=== PATIENT | male | born 1960 | race Caucasian/White ===

== ENCOUNTER 2020-05-06 10:39 | Outpatient (REF) | payer OTHER, SELFPAY ==
[2020-05-06 12:11] LABS: Anion Gap 10 (12-20); Blood Urea Nitrogen 16 mg/dL (9-16); Calcium 8.8 mg/dL (8.4-10.2); Carbon Dioxide 28 mmol/L (22-29); Chloride 103 mmol/L (96-108); Cholesterol 174 mg/dL; Estimated Glomerular Filt Rate > 60; Glucose Random 111 mg/dL (60-115); HDL Cholesterol 33 mg/dL; LDL Cholesterol Calculated 123 mg/dl; Potassium 4.3 mmol/l (3.3-5.1); Sodium 137 mmol/L (135-145); Triglycerides 91 mg/dL
[2020-05-06 12:26] LABS: Creatinine Urine 118.91 mg/dL; Microalbum/Creatinine Ratio Ur 17.6 ug/mg cr
[2020-05-06 13:36] LABS: Prostate Specific Antigen 2.58 ng/mL (<0.05-4.0)
== END 2020-05-06 10:40 | disposition home or self-care (01) ==
LOC: HO.LAB 10:39
PROVIDERS: PCP Family Medicine; Visit Provider Family Medicine
DX: Z12.5 Encounter for screening for malignant neoplasm of prostate (principal); Z12.11 Encounter for screening for malignant neoplasm of colon; Z12.12 Encounter for screening for malignant neoplasm of rectum; E78.00 Pure hypercholesterolemia, unspecified; I10 Essential (primary) hypertension
CPT/HCPCS: 80048; 80061; 82043; 84153

== ENCOUNTER 2020-05-29 16:35 | Outpatient (REF) | payer OTHER, SELFPAY | END 2020-05-29 16:36 | disposition home or self-care (01) | LOC: HO.LAB 16:35 | PROVIDERS: Visit Provider Internal Medicine | DX: Z20.828 Contact with and (suspected) exposure to other viral communicable diseases (principal) | CPT/HCPCS: C9803; U0003 ==

== ENCOUNTER 2021-03-06 13:10 | Outpatient (REF) | payer OTHER, SELFPAY | END 2021-03-06 13:11 | disposition home or self-care (01) | LOC: HO.HMGCLDS 13:10 | PROVIDERS: PCP Family Medicine; Visit Provider Internal Medicine | DX: Z20.822 Contact with and (suspected) exposure to COVID-19 (principal) | CPT/HCPCS: C9803; U0003; U0005 ==

== ENCOUNTER 2021-05-08 09:05 | Outpatient (REF) | payer OTHER, SELFPAY ==
--- NOTE | ~2021-05-08 | XR_ITS ---
EXAMINATION: XR CHEST CLINICAL INFORMATION: Nicotine dependence COMPARISON: Previous chest x-rays most recent July 2019 TECHNIQUE: 2 views of the chest were obtained. FINDINGS: The cardiac and mediastinal contours are stable. The lungs are well inflated. The lungs are clear. There is no pleural effusion or pneumothorax. There are degenerative changes of the spine. XR/XR chest 2V IMPRESSION: No evidence for acute disease in the chest.
[2021-05-08 10:49] LABS: Alanine Aminotransferase 14 U/L (0-40); Albumin Level 4.4 g/dL (3.5-5.0); Alkaline Phosphatase 69 U/L (39-117); Anion Gap 12 (12-20); Aspartate Amino Transferase 14 U/L (5-37); Bilirubin Total 0.4 mg/dL (0.0-1.0); Blood Urea Nitrogen 17 mg/dL (9-16); Calcium 9.6 mg/dL (8.4-10.2); Carbon Dioxide 30 mmol/L (22-29); Chloride 105 mmol/L (96-108); Cholesterol 196 mg/dL; Estimated Glomerular Filt Rate > 60; Glucose Fasting 104 mg/dL (60-99); HDL Cholesterol 34 mg/dL; LDL Cholesterol Calculated 138 mg/dl; Potassium 4.7 mmol/L (3.3-5.1); Sodium 142 mmol/L (135-145); Total Protein 7.1 g/dL (6.5-8.0); Triglycerides 120 mg/dL
== END 2021-05-08 09:06 | disposition home or self-care (01) ==
LOC: HO.LAB 09:05
PROVIDERS: PCP Family Medicine; Visit Provider Family Medicine
DX: Z00.00 Encounter for general adult medical examination without abnormal findings (principal); E78.6 Lipoprotein deficiency; F17.200 Nicotine dependence, unspecified, uncomplicated; I10 Essential (primary) hypertension; Z86.39 Personal history of other endocrine, nutritional and metabolic disease
CPT/HCPCS: 36415; 71046; 80053; 80061; 84443

== ENCOUNTER 2021-08-14 09:43 | Outpatient (REF) | payer OTHER, SELFPAY ==
[2021-08-14 10:52] LABS: Cholesterol 186 mg/dL; HDL Cholesterol 34 mg/dL; LDL Cholesterol Calculated 134 mg/dl; Triglycerides 92 mg/dL
== END 2021-08-14 09:44 | disposition home or self-care (01) ==
LOC: HO.LAB 09:43
PROVIDERS: PCP Family Medicine; Visit Provider Family Medicine
DX: E78.5 Hyperlipidemia, unspecified (principal)
CPT/HCPCS: 36415; 80061

== ENCOUNTER 2022-02-12 08:54 | Outpatient (REF) | payer OTHER, SELFPAY ==
[2022-02-12 09:58] LABS: Alanine Aminotransferase 9 U/L (0-40); Albumin Level 4.3 g/dL (3.5-5.0); Alkaline Phosphatase 87 U/L (39-117); Anion Gap 16 (12-20); Aspartate Amino Transferase 14 U/L (5-37); Bilirubin Total 0.7 mg/dL (0.0-1.0); Blood Urea Nitrogen 13 mg/dL (9-16); Calcium 9.4 mg/dL (8.4-10.2); Carbon Dioxide 26 mmol/L (22-29); Chloride 101 mmol/L (96-108); Cholesterol 173 mg/dL; Estimated Glomerular Filt Rate > 60; Glucose Fasting 95 mg/dL (60-99); HDL Cholesterol 33 mg/dL; LDL Cholesterol Calculated 118 mg/dl; Potassium 4.5 mmol/L (3.3-5.1); Sodium 138 mmol/L (135-145); Total Protein 7.2 g/dL (6.5-8.0); Triglycerides 110 mg/dL
== END 2022-02-12 08:55 | disposition home or self-care (01) ==
LOC: HO.LAB 08:54
PROVIDERS: PCP Family Medicine; Visit Provider Family Medicine
DX: Z00.00 Encounter for general adult medical examination without abnormal findings (principal)
CPT/HCPCS: 36415; 80053; 80061

== ENCOUNTER 2022-08-13 09:05 | Outpatient (REF) | payer OTHER, SELFPAY ==
[2022-08-13 09:13] LABS: MANUAL DIFF FLAG NO
[2022-08-13 09:24] LABS: Basophils Absolute Auto 0.1 X10*3/uL (0.0-0.2); Basophils Percent Auto 1.9 % (0-2); Eosinophils Absolute Auto 0.3 X10*3/uL (0.0-0.4); Eosinophils Percent Auto 3.9 % (0-4); Hematocrit 46.6 % (42.0-52.0); Hemoglobin 15.6 g/dl (14.0-18.0); Imm Gran Abs Auto 0.02 X10*3/uL (0.00-0.03); Imm Gran Pct Auto 0.3 % (0.0-0.4); Lymphocytes Absolute Auto 2.3 X10*3/uL (1.2-4.9); Mean Corpuscular HGB Conc 33.5 g/dl (31.0-36.0); Mean Corpuscular Hemoglobin 29.2 pg (27.0-33.0); Mean Corpuscular Volume 87.3 fL (80.0-98.0); Mean Platelet Volume 10.7 fL (9.4-12.4); Monocytes Absolute Auto 0.6 X10*3/uL (0.1-1.2); Neutrophils Absolute Auto 4.1 x10*3/uL (2.0-8.3); Neutrophils Percent Auto 54.9 % (45-73); Platelet Count 200 X10*3/uL (160-400); Red Blood Count 5.34 X10*6/uL (4.60-5.80); Red Cell Distribution Width 12.7 % (11.0-16.0); White Blood Count 7.5 X10*3/uL (4.8-10.8)
[2022-08-13 09:49] LABS: Appearance Urine Clear; Color Urine Yellow; Glucose Urine UA Negative (Negative); Leukocyte Esterase Urine Negative (Negative); Nitrite Urine Negative (Negative); Urine Blood Negative (Negative); Urine Ketones Negative (Negative); Urine Protein Negative (Neg-Trace)
[2022-08-13 09:56] LABS: Creatinine Urine 166.36 mg/dL; Microalbum/Creatinine Ratio Ur 16.8 ug/mg cr
[2022-08-13 10:00] LABS: Alanine Aminotransferase 12 U/L (0-40); Albumin Level 4.2 g/dL (3.5-5.0); Alkaline Phosphatase 69 U/L (39-117); Anion Gap 14 (12-20); Aspartate Amino Transferase 16 U/L (5-37); Bilirubin Total 0.5 mg/dL (0.0-1.0); Blood Urea Nitrogen 18 mg/dL (9-16); Calcium 9.2 mg/dL (8.4-10.2); Carbon Dioxide 29 mmol/L (22-29); Chloride 107 mmol/L (96-108); Cholesterol 182 mg/dL; Estimated Glomerular Filt Rate > 60; Glucose Fasting 105 mg/dL (60-99); HDL Cholesterol 36 mg/dL; LDL Cholesterol Calculated 132 mg/dl; Potassium 4.6 mmol/L (3.3-5.1); Sodium 145 mmol/L (135-145); Total Protein 6.5 g/dL (6.5-8.0); Triglycerides 73 mg/dL
[2022-08-13 10:16] LABS: Prostate Specific Antigen Scr 5.48 ng/mL (<0.05-4.0); TSH reflex Free T4 0.81 uIU/mL (0.32-4.0)
== END 2022-08-13 09:06 | disposition home or self-care (01) ==
LOC: HO.LAB 09:05
PROVIDERS: PCP Family Medicine; Visit Provider Family Medicine
DX: Z00.00 Encounter for general adult medical examination without abnormal findings (principal); Z12.5 Encounter for screening for malignant neoplasm of prostate; I10 Essential (primary) hypertension
CPT/HCPCS: 36415; 80053; 80061; 81003; 82043; 84153; 84443; 85025

== ENCOUNTER 2022-11-19 09:35 | Outpatient (REF) | payer OTHER, SELFPAY ==
[2022-11-19 10:31] LABS: Alanine Aminotransferase 15 U/L (0-40); Albumin Level 4.4 g/dL (3.5-5.0); Alkaline Phosphatase 73 U/L (39-117); Anion Gap 12 (12-20); Aspartate Amino Transferase 17 U/L (5-37); Bilirubin Total 0.9 mg/dL (0.0-1.0); Blood Urea Nitrogen 14 mg/dL (9-16); Calcium 9.6 mg/dL (8.4-10.2); Carbon Dioxide 30 mmol/L (22-29); Chloride 102 mmol/L (96-108); Cholesterol 181 mg/dL; Estimated Glomerular Filt Rate > 60; Glucose Fasting 97 mg/dL (60-99); HDL Cholesterol 36 mg/dL; LDL Cholesterol Calculated 129 mg/dl; Potassium 4.3 mmol/L (3.3-5.1); Sodium 140 mmol/L (135-145); Triglycerides 80 mg/dL
== END 2022-11-19 09:36 | disposition home or self-care (01) ==
LOC: HO.LAB 09:35
PROVIDERS: PCP Family Medicine; Visit Provider Family Medicine
DX: Z00.00 Encounter for general adult medical examination without abnormal findings (principal); R73.01 Impaired fasting glucose; E78.5 Hyperlipidemia, unspecified
CPT/HCPCS: 36415; 80053; 80061

== ENCOUNTER 2023-03-29 16:32 | Outpatient (AMB) | payer OTHER, SELFPAY ==
[2023-03-29 16:41] VITALS: BP 108/62; PULSE 60; O2SAT 98; BMI 23.3
--- NOTE | 2023-03-29 16:41 | A.OFFPC_ITS ---
Vital Signs 03/29/23 16:41 Height 5 ft 9 in Weight 158 lb 2 oz BMI 23.3 BP 108/62 Blood Pressure Location Lt brachial Position Sitting Pulse 60 Pulse Source Pulse Oximeter Pulse Oximetry (%) 98 Oxygen Delivery Method Room Air Intake Visit Reasons: f/u hypertension and chronic conditions Intake Note: Patient is here for follow up on hypertension and chronic. Allergies No Known Allergies [No Known Allergies*] Allergy (Verified 03/29/23 16:44) Tobacco use date assessed: 03/29/23 Fall risk assessment: No Falls in past year Last assessed Fall Risk: 03/29/23 Dental Screening Dental Screen Date: 03/29/23 Did you have a dental visit in the last 12 months?: No Did you have a dental problem in the last 6 months where you did not have access to dental care?: No Was dental information given to patient?: Patient has dentist HPI f/u hypertension and chronic conditions HPI Details 63 y/o male presents to f/u hypertension and chronic conditions. Blood pressure today 108/62. He is on lisinopril 10mg and metoprolol 100mg daily. A1c today 03/29/23 is 5.7%. [facility] Surgical History History of ear surgery History of surgery on lower extremity Social History Housing: Apartment Alcohol intake: never Patient Tobacco Use Status: Current everyday Tobacco user Tobacco use type: Cigarette Cigarette Packs Per Day: 0.5 Cigarettes Per Day: 10 e-Cigarette/Vaping Use: Never Used Second Hand Smoke Exposure: Yes service: No Current occupational status: employed Cognitive needs: No Hearing needs: No Vision needs: No Questionnaire Thrive Questionnaire Date Thrive assessed: 08/16/22 MAUREEN-7 AMB Questionnaire MAUREEN-7 Date MAUREEN - 7 assessed: 08/16/22 Source: Developed by Drs. Matti Richard, Clarita Somers, Mohsen Longoria and colleagues, with an educational juli from [employer]. Review of Systems Const Denies chills, Denies fatigue, Denies fever(s), Denies headache(s) and Denies weakness ENT Denies dizziness and Denies headache(s) Card Denies chest pain, Denies lightheadedness, Denies dyspnea and Denies other (Palpitations) Resp Denies cough, Denies dyspnea, Denies wheezing and Denies other ( shortness of breath) Musc Denies numbness and Denies tingling Neuro Denies dizziness, Denies headache(s), Denies numbness, Denies tingling, Denies paresthesias and Denies weakness Psych Denies anxiety and Denies depression Endo Denies fatigue Aller/Immun Denies wheezing Physical exam (Primary Care) Vital Signs: Last Vital Signs Pulse 60 03/29/23 16:41 BP 108/62 03/29/23 16:41 Pulse Ox 98 03/29/23 16:41 Oxygen Delivery Method Room Air 03/29/23 16:41 BMI result Body Mass Index 23.3 Tobacco/Smoking Status: Tobacco use Status Tobacco use date assessed 03/29/23 03/29/23 16:51 Patient Tobacco Use Status Current everyday Tobacco 03/29/23 16:42 Tobacco use type Cigarette 03/29/23 16:42 e-Cigarette/Vaping Use Never Used 03/29/23 16:42 Thrive Assessment: Date of Thrive Assessment Date Thrive assessed 08/16/22 03/29/23 16:42 Const General: no acute distress and well developed Nutritional Appearance: well nourished Orientation/consciousness: patient oriented x3 HENMT Head: Yes normocephalic and Yes atraumatic Eyes General: appearance normal, both eyes and all related structures Pupils: Equal, round and reactive pupils present EOM: EOMs intact bilaterally Resp Effort & Inspection: normal respiratory effort Auscultation: clear to auscultation bilaterally Cardio Rate: regular rate Rhythm: regular rhythm Heart sounds: S1 normal heart sound present, S2 normal heart sound present, no gallops, no murmurs and no rubs Neuro General: patient oriented x3 and gait normal Cranial nerves: Yes Equal, round and reactive pupils present Psych Affect: normal affect Results AMB Hemoglobin A1c AMB Hemoglobin A1c 5.7 % Last Edit by Ria Cross CMA on 03/29/23 17:22 Results Reviewed Results Reviewed: Laboratory Last Values Hgb A1c (Clinic) 5.7 % (4.0-6.0) 03/29/23 17:15 Assessment and Plan Assessment & Plan (1) Essential hypertension: Code(s): I10 - Essential (primary) hypertension Plan: Blood?pressure?is?well?controlled.??Goal?is?less?than?140/90 Tolerating?medications?well.??No?weakness?fatigue?or?dizziness Continue?current?medication?regimen. Hydrate?well. If?blood?pressure?is? any?lower?at?subsequent?visits,?may?ease?up?on?blood?pressure?medication (2) Pre-diabetes: Code(s): R73.03 - Prediabetes Plan: A1c?5.7%?again?today.??Stable.??Pre?diabetes?range Encouraged?diet?lower?in?sugars?and?starches Encouraged?weight?control?and?exercise (3) Elevated PSA: Code(s): R97.20 - Elevated prostate specific antigen [PSA] Plan: PSA?has?been?elevated?and?I?had?referred?him?to?urology. He?still?has?not?seen?a?urologist Recheck?PSA?level?and?we?will?discuss?at?telemedicine?encounter?in?a?few?weeks. Orders: Orders AMB Hemoglobin A1c Today Z13.9 - Encounter for screening, unspecified Comprehensive Met. Panel Today I10 - Essential (primary) hypertension Prostate Specific Antigen Scr Today R97.20 - Elevated prostate specific antigen [PSA], Z12.5 - Encounter for screening for malignant neoplasm of prostate Coding Level of Care Code Est Pt Level 3 (76513) Diagnoses Essential hypertension I10 Pre-diabetes R73.03 Elevated PSA R97.20
== END 2023-03-29 16:45 ==
PROVIDERS: PCP Family Medicine; Visit Provider Family Medicine
DX: I10 Essential (primary) hypertension (principal); R73.03 Prediabetes; R97.20 Elevated prostate specific antigen [PSA]
CPT/HCPCS: 83036; 99213

== ENCOUNTER 2023-05-06 08:20 | Outpatient (REF) | payer OTHER, SELFPAY ==
[2023-05-06 09:14] LABS: Alanine Aminotransferase 11 U/L (0-40); Albumin Level 4.4 g/dL (3.5-5.0); Alkaline Phosphatase 76 U/L (39-117); Anion Gap 11 (12-20); Aspartate Amino Transferase 19 U/L (5-37); Bilirubin Total 0.5 mg/dL (0.0-1.0); Blood Urea Nitrogen 17 mg/dL (9-16); Calcium 9.8 mg/dL (8.4-10.2); Carbon Dioxide 32 mmol/L (22-29); Chloride 102 mmol/L (96-108); Estimated Glomerular Filt Rate > 60; Glucose Random 108 mg/dL (60-115); Potassium 4.6 mmol/L (3.3-5.1); Sodium 140 mmol/L (135-145); Total Protein 7.4 g/dL (6.5-8.0)
[2023-05-06 09:40] LABS: Prostate Specific Antigen Scr 7.12 ng/mL (<0.05-4.0)
== END 2023-05-06 08:21 | disposition home or self-care (01) ==
LOC: HO.LAB 08:20
PROVIDERS: PCP Family Medicine; Visit Provider Family Medicine
DX: Z12.5 Encounter for screening for malignant neoplasm of prostate (principal); R97.20 Elevated prostate specific antigen [PSA]; I10 Essential (primary) hypertension
CPT/HCPCS: 36415; 80053; 84153

== ENCOUNTER 2023-05-10 15:50 | Outpatient (AMB) | payer OTHER, SELFPAY ==
--- NOTE | 2023-05-10 15:43 | A.OFFPC_ITS ---
Intake Visit Reasons: f/u labs Intake Note: Spoke with patients who has permission to speak on behalf of the patient. Patient's reports patient is able to have a telehealth call at 4:15pm to review the labs. Patient's reports they are looking to review PSA results. 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 Elevated PSA of 7.12. He has not seen a urologist yet as he could not make appointments for when he got out of work. They deny any issues with his urine stream or difficulty urinating. Liver enzymes are fine. Creatinine levels are fine. [facility] Surgical History History of ear surgery History of surgery on lower extremity Social History Housing: Apartment Alcohol intake: never Patient Tobacco Use Status: Current everyday Tobacco user Tobacco use type: Cigarette Cigarette Packs Per Day: 0.5 Cigarettes Per Day: 10 e-Cigarette/Vaping Use: Never Used Second Hand Smoke Exposure: Yes service: No Current occupational status: employed Cognitive needs: No Hearing needs: No Vision needs: No Questionnaire Thrive Questionnaire Date Thrive assessed: 08/16/22 MAUREEN-7 AMB Questionnaire MAUREEN-7 Date MAUREEN - 7 assessed: 08/16/22 Source: Developed by Drs. Matti Richard, Clarita Somers, Mohsen Longoria and colleagues, with an educational juli from [employer]. Review of Systems Const Denies chills, Denies fatigue, Denies fever(s), Denies headache(s) and Denies weakness ENT Denies dizziness and Denies headache(s) Card Denies dyspnea Resp Denies cough, Denies dyspnea, Denies wheezing and Denies other (shortness of breath) Musc Denies numbness and Denies tingling Neuro Denies dizziness, Denies headache(s), Denies numbness, Denies tingling and Denies weakness Psych Denies anxiety and Denies depression Endo Denies fatigue Aller/Immun Denies wheezing Physical exam (Primary Care) Tobacco/Smoking Status: Tobacco use Status Tobacco use date assessed 03/29/23 05/10/23 15:47 Patient Tobacco Use Status Current everyday Tobacco 05/10/23 15:47 Tobacco use type Cigarette 05/10/23 15:47 e-Cigarette/Vaping Use Never Used 05/10/23 15:47 Thrive Assessment: Date of Thrive Assessment Date Thrive assessed 08/16/22 05/10/23 15:47 Telehealth Telehealth Location of provider rendering services: practice address Location of patient: address on file Patient Identification confirmed using: Name, : Yes Telehealth method: voice only Patient verbally consented to treatment: Yes Patient verbally consented to billing insurance company: Yes Patient informed of any privacy concerns related to visit: Yes Minutes spent on Phone/Video with Pt.: 6 Assessment and Plan Assessment & Plan (1) Elevated PSA: Code(s): R97.20 - Elevated prostate specific antigen [PSA] Plan: Elevated?PSA?and?this?is?rising Had?referred?him?to?Urology?back?in?Febr uary?but?patient?did?not?make?an?appointment - says?he?was?not?able?to?get?this?scheduled?due?to?work?conflicts. Strongly?encouraged?him?to?make?appointment?and?I?have?made?a?new?referral. Coding Level of Care Code Tele Est Pt Level 2 (16533) Diagnoses Elevated PSA R97.20
== END 2023-05-10 16:45 ==
PROVIDERS: PCP Family Medicine; Visit Provider Family Medicine
DX: R97.20 Elevated prostate specific antigen [PSA] (principal)
CPT/HCPCS: 99212

== ENCOUNTER 2023-06-16 14:45 | Outpatient (AMB) | payer OTHER, SELFPAY ==
--- NOTE | 2023-06-16 15:01 | MHC.OFFVIS ---
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 Blackburn who was accompanied by his Lety at today's office visit. He has a past medical history of pre diabetes, hypercholesteremia, and hypertension. He presents to the office today as a new patient for an elevated PSA. In review of patient's chart it appears PSAs are as follows: 08/18-- 5.5 04/17--7.1 When asked he denies any bothersome urinary issues or concerns. He denies urinary urgency, urinary frequency, incontinence, nocturia, hematuria, dysuria, foul smelling urine, changes to urinary stream, flank pain, fever, and or chills. He is happy with his current voiding parameters. Discussed at length potential causes for elevated PSA. When asked he denies any known family history of prostate cancer. Discussed redraw of PSA with no sex the night before, no caffeine morning of, and no heavy lifting 1-2 days prior as well as obtaining retroperitoneal ultrasound for further assessment evaluation versus prostate biopsy. These interventions were discussed at length as well as risks and benefits of these interventions. In office urinalysis results reviewed with the patient today. He otherwise offers no other issues or concerns at this time. RENZO performed no nodules or masses palpated however right-sided prostate noted to be firm. [facility] Surgical History History of ear surgery History of surgery on lower extremity Social History Housing: Apartment Alcohol intake: never Patient Tobacco Use Status: Current everyday Tobacco user Tobacco use type: Cigarette Cigarette Packs Per Day: 0.5 Cigarettes Per Day: 10 e-Cigarette/Vaping Use: Never Used Second Hand Smoke Exposure: Yes service: No Current occupational status: employed Cognitive needs: No Hearing needs: No Vision needs: No Review of Systems Const Reports as per HPI Eyes Reports no additional complaints ENT Reports no additional complaints Card Reports as per HPI Resp Reports no additional complaints GI Reports no additional complaints Reports as per HPI Musc Reports no additional complaints Neuro Reports no additional complaints Psych Reports no additional complaints Endo Reports as per HPI Edmar/Lymph Reports no additional complaints Aller/Immun Reports no additional complaints Physical Exam Const General: cooperative, comfortable, no acute distress, well developed, alert and awake Orientation/consciousness: patient oriented x3 HEENT Head: Yes normal to inspection, Yes normocephalic and Yes atraumatic Ears: hearing grossly normal bilaterally Eyes General: appearance normal, both eyes and all related structures Neck Neck: Yes normal visual inspection and Yes trachea midline Chest Chest palpation & inspection: normal inspection of the chest Resp Effort & Inspection: normal respiratory effort and able to speak in complete sentences Cardio Rate: regular rate GI Inspection: Yes normal to inspection General: Yes no CVA tenderness Back/Spine/Pelvis Back: no CVA tenderness Skin General skin exam: no rashes or lesions noted Neuro General: patient oriented x3 Extrem General: Yes normal to inspection Psych Appearance: grossly normal and well kempt Mental Status: mental status grossly normal Speech and movement: Normal speech and movement present and Clear speech present Affect: normal affect Attitude: cooperative Thought process: Normal thought process present Thought content: Normal thought content present Insight: Fair insight present (Psych) Judgement: Fair judgement present (Psych) Results AMB Urinalysis, Automated UA Leukoctes 0 Que/uL Last Edit by WaveMAX on 06/16/23 15:30 UA Nitrite Negative Last Edit by WaveMAX on 06/16/23 15:30 UA Urobilinogen 0.2 mg/dL Last Edit by WaveMAX on 06/16/23 15:30 UA Protein 0 mg/dL Last Edit by WaveMAX on 06/16/23 15:30 UA pH 6.0 Last Edit by WaveMAX on 06/16/23 15:30 UA Blood 0 Nishant/uL Last Edit by WaveMAX on 06/16/23 15:30 UA Specific [place] 1.015 Last Edit by WaveMAX on 06/16/23 15:30 UA Ketone Negative Last Edit by Nitin Billy on 06/16/23 15:30 UA Bilirubin 0 mg/dL Last Edit by Nitin Billy on 06/16/23 15:30 UA Glucose 0 mg/dL Last Edit by Nitin Billy on 06/16/23 15:30 Results Reviewed Results Reviewed: Laboratory Last Values Urine pH (Auto) 6.0 06/16/23 15:04 Specific [place] (Auto) 1.015 06/16/23 15:04 Urine Protein (Auto) 0 mg/dL 06/16/23 15:04 Glucose (UA)(Auto) 0 mg/dL 06/16/23 15:04 Urine Ketones (Auto) Negative 06/16/23 15:04 Urine Blood (Auto) 0 Nishant/uL 06/16/23 15:04 Urine Nitrite (Auto) Negative 06/16/23 15:04 Urine Bilirubin (Auto) 0 mg/dL 06/16/23 15:04 Urine Urobilinogen (Auto) 0.2 mg/dL 06/16/23 15:04 Leukocyte Esterase (Auto) 0 Que/uL 06/16/23 15:04 Assessment & Plan Assessment & Plan (1) Elevated PSA: Code(s): R97.20 - Elevated prostate specific antigen [PSA] Plan In office urinalysis results reviewed with the patient his today; as noted above. Discussed at length potential causes for elevated PSA. Discussed redraw of PSA verses prostate biopsy; discussed risks and benefits of these interventions at length All questions were answered RENZO performed; as noted above. Will obtain PSA with no sex the night before, no caffeine morning of, and no heavy lifting 1-2 days prior. Will obtain retroperitoneal ultrasound for further assessment evaluation. Patient denies any bothersome urinary issues. He reports be happy with current voiding parameters. Follow-up in 4-6 weeks with lab and imaging to be completed prior; or sooner with any issues, concerns, and or questions. Orders: Orders US retroperitoneal comp 06/16/23 R97.20 - Elevated prostate specific antigen [PSA] PSA,Total (Free>4and<10) 06/16/23 R97.20 - Elevated prostate specific antigen [PSA] AMB Urinalysis Automated 06/16/23 Z13.9 - Encounter for screening, unspecified Patient Instructions: The patient had an opportunity to ask questions regarding the treatment plan. All questions were answered. Physical exam, labs, and imaging were discussed and reviewed in detail. As well as risks, benefits, and discussion of treatment choices. No major barriers to understanding were identified. The patient expressed understanding and agreement with the above treatment plan. The patient was made aware they should contact our office by phone for worsening of their current condition, the appearance of new symptoms, or with any questions or concerns. Compliance is encouraged with any medications and follow up testing that is ordered. It is a privilege to be allowed the opportunity to participate in? your urological care.? Again, if you have any questions or concerns If you have any questions or concerns please do not hesitate to contact me. The office is [phone]. This note is constructed using voice recognition software. While every effort has been made to ensure accuracy u.s. representative errors may have been included. Yours sincerely, FLORA Hernandez Coding Level of Care Code New Pt Level 3 (42057) Diagnoses Elevated PSA R97.20
== END 2023-06-16 15:39 | disposition home or self-care (01) ==
PROVIDERS: PCP Family Medicine; Referring Provider Family Medicine; Visit Provider Nurse Practitioner Family
DX: R97.20 Elevated prostate specific antigen [PSA] (principal)
CPT/HCPCS: 99203

== ENCOUNTER → 2023-06-16 14:45 | Outpatient (BNVA) | payer OTHER, SELFPAY | PROVIDERS: PCP Family Medicine; Visit Provider Nurse Practitioner Family | DX: R97.20 Elevated prostate specific antigen [PSA] (principal) | CPT/HCPCS: 81003 ==

== ENCOUNTER 2023-07-26 16:20 | Outpatient (REF) | payer OTHER, SELFPAY ==
--- NOTE | ~2023-07-26 | US_ITS ---
EXAMINATION: US RETROPERITONEAL LIMITED (RENAL ONLY) CLINICAL INFORMATION: Elevated prostate-specific antigen. COMPARISON: CT abdomen and pelvis 06/19/2019. TECHNIQUE: Real-time imaging of the kidneys. FINDINGS: RIGHT KIDNEY: 9.6 x 4.0 x 4.2 cm (SAG x AP x TRV). The kidney is normal in size, contour, and echogenicity. Renal cortical thickness is normal. No renal calculi or hydronephrosis. Right upper parapelvic simple cyst is seen measuring 0.7 x 1.0 x 0.8 cm in size LEFT KIDNEY: 10.3 x 5.1 x 4.9 cm (SAG x AP x TRV). The kidney is normal in size, contour, and echogenicity. Renal cortical thickness is normal. No calculi or focal parenchymal lesions. No hydronephrosis. Multiple hyperechoic foci are seen mostly along the corticomedullary junction. US/US retroperitoneal limited IMPRESSION: 1. Simple right renal cyst is found, for which no follow up imaging is recommended. 2. Multiple hyperechoic foci are seen mostly along the corticomedullary junction of the left kidney. The appearance is nonspecific and could reflect medullary nephrocalcinosis. No nephrocalcinosis however, is seen on CT scan of abdomen and pelvis on 06/19/2019.
== END 2023-07-26 16:21 | disposition home or self-care (01) ==
LOC: HO.US 16:20
PROVIDERS: PCP Family Medicine; Visit Provider Nurse Practitioner Family
DX: R97.20 Elevated prostate specific antigen [PSA] (principal)
CPT/HCPCS: 76775

== ENCOUNTER 2023-08-12 08:41 | Outpatient (REF) | payer OTHER, SELFPAY ==
[2023-08-12 10:06] LABS: PSA,Total (Free>4and<10) 7.09 ng/mL (0.00-4.00)
[2023-08-14 10:53] LABS: Free Prostate Spec Ag 0.5 ng/mL; Percent Free Prostate Spec Ag 7 % (calc) (>25); Prostate Specific Ag Total 6.9 ng/mL (< OR = 4.0)
== END 2023-08-12 08:42 | disposition home or self-care (01) ==
LOC: HO.LAB 08:41
PROVIDERS: PCP Family Medicine; Visit Provider Nurse Practitioner Family
DX: Z12.5 Encounter for screening for malignant neoplasm of prostate (principal); R97.20 Elevated prostate specific antigen [PSA]
CPT/HCPCS: 36415; 84153; 84154

== ENCOUNTER 2023-08-15 16:10 | Outpatient (REF) | payer OTHER, SELFPAY ==
--- NOTE | ~2023-08-15 | US_ITS ---
EXAMINATION: US PELVIS LIMITED (BLADDER) CLINICAL INFORMATION: Elevated PSA. COMPARISON: CT abdomen and pelvis 06/19/2019. TECHNIQUE: Real-time imaging of the bladder. FINDINGS: BLADDER: Well distended and normal. Bilateral ureteral jets are demonstrated. Prevoid bladder volume is 209 mL. Postvoid bladder volume is 11 mL. OTHER: Prostate dimensions are 6.3 x 3.3 x 4.5 cm, volume 47.9 mL. US/US bladder IMPRESSION: 1. Unremarkable ultrasound appearance of the urinary bladder. 2. There is prostatomegaly.
== END 2023-08-15 16:11 | disposition home or self-care (01) ==
LOC: HO.US 16:10
PROVIDERS: PCP Family Medicine; Visit Provider Nurse Practitioner Family
DX: R97.20 Elevated prostate specific antigen [PSA] (principal)
CPT/HCPCS: 76857

== ENCOUNTER 2023-09-25 16:22 | Outpatient (AMB) | payer OTHER, SELFPAY ==
[2023-09-25 16:25] VITALS: BP 112/70; PULSE 94; O2SAT 100; BMI 22.2
--- NOTE | 2023-09-25 16:25 | A.OFFPC_ITS ---
Vital Signs 09/25/23 16:25 Height 5 ft 9 in Weight 150 lb 4 oz BMI 22.2 BP 112/70 Blood Pressure Location Lt brachial Position Sitting Pulse 94 Pulse Source Pulse Oximeter Pulse Oximetry (%) 100 Oxygen Delivery Method Room Air Intake Visit Reasons: CPE?with?follow-up?health?maintenance Intake Note: Patient is here for his physical today. Allergies No Known Allergies [No Known Allergies*] Allergy (Verified 09/25/23 16:28) Medication List - Last Reconciled 09/25/23 by Daquan Blackburn MD lisinopril 10 mg PO DAILY metoprolol succinate ER 100 mg PO DAILY Tobacco use date assessed: 09/25/23 Fall risk assessment: No Falls in past year Last assessed Fall Risk: 09/25/23 Dental Screening Dental Screen Date: 09/25/23 Did you have a dental visit in the last 12 months?: No Did you have a dental problem in the last 6 months where you did not have access to dental care?: No Was dental information given to patient?: Patient declined HPI CPE?with?follow-up?health?maintenance HPI Details 63 y/o male presents for a CPE with f/u labs and health maintenance. No recent labs to review. Blood pressure today 112/70. He is on lisinopril 10mg, metoprolol 100mg daily. HPI Comments History of Present Illness Details Documentation assistance for Daquan Blackburn MD, was provided by Jaylan James, Lead Dental Assistant on 09/25/2023 4:58 PM MARIZA. Fanny, Dr. Blackburn, have read, observed, and verified documentation. [facility] Surgical History History of ear surgery History of surgery on lower extremity Social History Housing: Apartment Alcohol intake: never Patient Tobacco Use Status: Current everyday Tobacco user Tobacco use type: Cigarette Cigarette Packs Per Day: 0.5 Cigarettes Per Day: 10 e-Cigarette/Vaping Use: Never Used Second Hand Smoke Exposure: Yes service: No Current occupational status: employed Cognitive needs: No Hearing needs: No Vision needs: No Questionnaire Thrive Questionnaire Date Thrive assessed: 08/16/22 MAUREEN-7 AMB Questionnaire MAUREEN-7 Date MAUREEN - 7 assessed: 08/16/22 Source: Developed by Drs. Matti Richard, Clarita Somers, Mohsen Longoria and colleagues, with an educational juli from [employer]. Review of Systems Const Denies chills, Denies fatigue, Denies fever(s), Denies headache(s) and Denies weakness Eyes Denies change in vision ENT Denies dizziness, Denies headache(s), Denies hearing loss, Denies nasal congestion, Denies sinus pain, Denies sinus pressure and Denies sore throat Card Denies chest pain, Denies lightheadedness, Denies dyspnea and Denies other (palpitations) Resp Denies cough, Denies dyspnea and Denies wheezing GI Denies abdominal pain, Denies melena, Denies hematochezia, Denies change in bowel habits, Denies dyspepsia and Denies nausea Denies hematuria and Denies dysuria Musc Denies abnormal gait, Denies myalgias, Denies arthralgias, Denies numbness and Denies tingling Skin/Breast Denies rash, Denies unusual bruising and Denies wounds Neuro Denies abnormal gait, Denies dizziness, Denies headache(s), Denies memory loss, Denies numbness, Denies Sensory deficit (Neuro), Denies tingling and Denies weakness Psych Denies anxiety, Denies depression and Denies memory loss Endo Denies cold intolerance, Denies fatigue, Denies heat intolerance, Denies polydipsia and Denies polyuria Edmar/Lymph Denies easy bleeding and Denies easy bruising Aller/Immun Denies wheezing Physical exam (Primary Care) Vital Signs: Last Vital Signs Pulse 94 09/25/23 16:25 BP 112/70 09/25/23 16:25 Pulse Ox 100 09/25/23 16:25 Oxygen Delivery Method Room Air 09/25/23 16:25 BMI result Body Mass Index 22.2 Tobacco/Smoking Status: Tobacco use Status Tobacco use date assessed 09/25/23 09/25/23 16:30 Patient Tobacco Use Status Current everyday Tobacco 09/25/23 16:30 Tobacco use type Cigarette 09/25/23 16:30 e-Cigarette/Vaping Use Never Used 09/25/23 16:30 Thrive Assessment: Date of Thrive Assessment Date Thrive assessed 08/16/22 09/25/23 16:30 Const General: no acute distress, well developed, alert and awake Nutritional Appearance: well nourished Orientation/consciousness: patient oriented x3 [facility] Head: Yes normocephalic and Yes atraumatic Ears: hearing grossly normal bilaterally and TM's normal bilaterally General nose exam: Normal external nose present and Normal nares present Mouth: Normal oral and palatal mucosa present and moist mucous membranes Teeth and gingiva: dentition normal Throat: Yes posterior oropharynx normal Eyes General: appearance normal, both eyes and all related structures Pupils: Equal, round and reactive pupils present and Pupil accommodation reflex normal EOM: EOMs intact bilaterally Neck Neck: Yes normal visual inspection, Yes no lymphadenopathy and Yes trachea midline Thyroid: Thyroid normal Carotids: no bruits Lymphatic: no lymphadenopathy noted Chest Chest palpation & inspection: normal inspection of the chest Resp Effort & Inspection: normal respiratory effort Auscultation: clear to auscultation bilaterally Cardio Rate: regular rate Rhythm: regular rhythm Heart sounds: S1 normal heart sound present, S2 normal heart sound present, no gallops, no murmurs and no rubs Bruits: no abdominal aortic bruits and no carotid bruits GI Palpation (GI): No Abdominal aortic bruit present, Soft to palpation, nontender, No hepatosplenomegaly present and No Rebound tenderness present Auscultation: normal bowel sounds General: Yes no CVA tenderness Back/Spine/Pelvis Back: no CVA tenderness Cervical Spine: cervical ROM normal and No Cervical spine tenderness Thoracic/Lumbar Spine: thoraco-lumbar ROM normal, No pain with thoraco-lumbar ROM, No thoracic spinal tenderness and No lumbar spinal tenderness Skin Lesions: no lesions Rashes: no rashes Trauma: no lacerations or abrasions Wounds: no wounds Nails: normal Neuro General: patient oriented x3 Cranial nerves: Yes Equal, round and reactive pupils present Cognition (Neuro): normal cognition Gait exam (Neuro): Normal gait present Motor exam (neuro): 5/5 motor strength present throughout Sensory Exam: No Sensory deficit (Neuro) Deep tendon reflexes (DTR's): Right patellar reflex intensity grade: 2+ and Left patellar reflex intensity grade: 2+ Extrem General: Yes normal to inspection and No edema Psych Appearance: grossly normal Affect: normal affect Attitude: cooperative Thought process: Normal thought process present Assessment and Plan Assessment & Plan (1) Adult general medical exam: Code(s): Z00.00 - Encounter for general adult medical examination without abnormal findings Plan: 63-year-old?male?presents?for?complete?physical?exam Encouraged?healthy?diet?with?active?lifestyle?and?plenty?of?exercise (2) Essential hypertension: Code(s): I10 - Essential (primary) hypertension Plan: Blood?pressure?is?well?controlled.??Goal?is?less?than?140/90 Continue?current?medication (3) Elevated PSA: Code(s): R97.20 - Elevated prostate specific antigen [PSA] Plan: Elevated?PSA?and?he?is?followed?by?Urology Follow-up?with?urology?as?recommended-he?has?an?appointment?tomorrow (4) Screening for colon cancer: Code(s): Z12.11 - Encounter for screening for malignant neoplasm of colon Plan: Had?a?Cologuard?test?in?October?of?2022.??Negative?results Up-to-date?and?will?get?next?Cologuard?test?in?2025 (5) Screening for prostate cancer: Code(s): Z12.5 - Encounter for screening for malignant neoplasm of prostate Plan: As?vbtwt-[id number]-jm?with?urology Coding Level of Care Code Est Pt Level 3 (07553) Est Pt Prev Care >65y(59676) Diagnoses Adult general medical exam Z00.00 Essential hypertension I10 Elevated PSA R97.20 Screening for colon cancer Z12.11 Screening for prostate cancer Z12.5
== END 2023-09-26 17:00 | disposition home or self-care (01) ==
PROVIDERS: PCP Family Medicine; Visit Provider Family Medicine
DX: Z00.00 Encounter for general adult medical examination without abnormal findings (principal); I10 Essential (primary) hypertension; R97.20 Elevated prostate specific antigen [PSA]; Z12.11 Encounter for screening for malignant neoplasm of colon; Z12.5 Encounter for screening for malignant neoplasm of prostate
CPT/HCPCS: 99397

== ENCOUNTER 2023-09-26 14:58 | Outpatient (AMB) | payer OTHER, SELFPAY ==
--- NOTE | 2023-09-26 14:59 | A.OFFVIS_ITS ---
Intake Intake Visit Reasons: PSA & Ultrasound Results(set) Intake Note: Patient presents today for a follow up on PSA and Ultrasound Meds- None Allergies to Antibiotic- No Known Allergies Blood Thinner- None Community Marketing Manager Required: No Allergies No Known Allergies [No Known Allergies*] Allergy (Verified 09/26/23 15:59) Medication List - Last Reconciled 09/26/23 by FRANCO Hernandez- lisinopril 10 mg PO DAILY metoprolol succinate ER 100 mg PO DAILY HPI HPI Comments History of Present Illness Details Cole is a 63-year-old male patient of Dr. Blackburn who was accompanied by his Lety during [facility] telehealth visit. He has a past medical history of pre diabetes, hypercholesteremia, and hypertension. He is being followed up on today via telehealth for his elevated PSA. Recent PSA and retroperitoneal ultrasound reviewed with the patient today. PSAs are as follows: 08/18-- 5.5 05/18--7.1 08/19-- 7.1 % free PSA 7% Bilateral kidneys with no hydronephrosis or lesions noted. Right kidney with upper peripelvic simple cyst measuring approximately 1 cm. Left kidney with multiple hyperechoic foci along the cortical medullary junction. The bladder is well distended and normal. Bilateral ureteral jets are demonstrated. Pre void bladder volume is approximately 210 mL. Postvoid bladder volume is approximately 10 mL. Prostate volume is approximately 48 mL. Discussed at length potential causes for elevated PSA. PCPT risk calculator results reviewed with the patient today. 13% chance for negative prostate biopsy, 54% chance low-grade prostate cancer, and 33% chance high-grade prostate cancer. He otherwise denies any urinary issues or concerns. He denies urinary urgency, urinary frequency, incontinence, nocturia, hematuria, dysuria, foul smelling urine, changes to urinary stream, flank pain, fever, and or chills. He is happy with his current voiding parameters. When asked he denies any known family history of prostate cancer. RENZO performed at last office visit noted no nodules or masses palpated however right-sided prostate was firm. Discussed at length risks and benefits of further treatment options to include prostate biopsy and or MRI of the prostate. Discussed at length potential delay in treatment with no further intervention as patient is reporting he would like to move forward with any intervention at this time. Discussed obtaining prostate biopsy under sedation if necessary however patient continues to decline any further treatment options at this time. He discusses he would like to think about it and further assess at a different time. He otherwise offers no other issues or concerns at this time. [facility] Surgical History History of ear surgery History of surgery on lower extremity Social History Housing: Apartment Alcohol intake: never Patient Tobacco Use Status: Current everyday Tobacco user Tobacco use type: Cigarette Cigarette Packs Per Day: 0.5 Cigarettes Per Day: 10 e-Cigarette/Vaping Use: Never Used Second Hand Smoke Exposure: Yes service: No Current occupational status: employed Cognitive needs: No Hearing needs: No Vision needs: No Review of Systems Const Reports as per HPI Eyes Reports no additional complaints ENT Reports no additional complaints Card Reports as per HPI Resp Reports no additional complaints GI Reports no additional complaints Reports as per HPI Musc Reports no additional complaints Neuro Reports no additional complaints Psych Reports no additional complaints Endo Reports as per HPI Edmar/Lymph Reports no additional complaints Aller/Immun Reports no additional complaints Physical Exam Const General: cooperative Resp Effort & Inspection: able to speak in complete sentences Psych Speech and movement: Clear speech present Affect: Hostile affect present Insight: Fair insight present (Psych) Judgement: Fair judgement present (Psych) Results Reviewed Results Reviewed: Date of Service: 07/26/23 EXAMINATION: US RETROPERITONEAL LIMITED (RENAL ONLY) FINDINGS: RIGHT KIDNEY: 9.6 x 4.0 x 4.2 cm (SAG x AP x TRV). The kidney is normal in size, contour, and echogenicity. Renal cortical thickness is normal. No renal calculi or hydronephrosis. Right upper parapelvic simple cyst is seen measuring 0.7 x 1.0 x 0.8 cm in size LEFT KIDNEY: 10.3 x 5.1 x 4.9 cm (SAG x AP x TRV). The kidney is normal in size, contour, and echogenicity. Renal cortical thickness is normal. No calculi or focal parenchymal lesions. No hydronephrosis. Multiple hyperechoic foci are seen mostly along the corticomedullary junction. -- IMPRESSION: 1. Simple right renal cyst is found, for which no follow up imaging is recommended. 2. Multiple hyperechoic foci are seen mostly along the corticomedullary junction of the left kidney. The appearance is nonspecific and could reflect medullary nephrocalcinosis. No nephrocalcinosis however, is seen on CT scan of abdomen and pelvis on 06/19/2019. Date of Service: 08/15/23 EXAMINATION: US PELVIS LIMITED (BLADDER) FINDINGS: BLADDER: Well distended and normal. Bilateral ureteral jets are demonstrated. Prevoid bladder volume is 209 mL. Postvoid bladder volume is 11 mL. OTHER: Prostate dimensions are 6.3 x 3.3 x 4.5 cm, volume 47.9 mL. US/US bladder IMPRESSION: 1. Unremarkable ultrasound appearance of the urinary bladder. 2. There is prostatomegaly. Assessment & Plan Assessment & Plan (1) Elevated PSA: Code(s): R97.20 - Elevated prostate specific antigen [PSA] Plan Recent PSA results reviewed with the patient today; as noted above. Recent retroperitoneal ultrasound results reviewed with the patient today; as noted above. Discussed at length potential causes for elevated PSA Discussed at length further treatment options with MRI of the prostate and or prostate biopsy; risks and benefits of these interventions were discussed. Discussed at length potential delay in treatment given patient does not want any interventions at this time. Discussed follow-up in 3 months with PSA however patient declines to wanting to have blood work. He would like to have telehealth appointment for follow-up as he feels if he is in office he stated I will hit you . Discussed follow-up with Dr. Prado and or Dr. Beth for 2nd opinion; however he declines. Discussed signing medical release forms if he would like to have 2nd opinion at another urology office. Follow-up in 2-3 months; or sooner with any issues, concerns, and or questions. Patient Instructions: The patient had an opportunity to ask questions regarding the treatment plan. All questions were answered. Physical exam, labs, and imaging were discussed and reviewed in detail. As well as risks, benefits, and discussion of treatment choices. No major barriers to understanding were identified. The patient expressed understanding and agreement with the above treatment plan. The patient was made aware they should contact our office by phone for worsening of their current condition, the appearance of new symptoms, or with any questions or concerns. Compliance is encouraged with any medications and follow up testing that is ordered. It is a privilege to be allowed the opportunity to participate in? your urological care.? Again, if you have any questions or concerns If you have any questions or concerns please do not hesitate to contact me. The office is [phone]. This note is constructed using voice recognition software. While every effort has been made to ensure accuracy senior net software developer errors may have been included. Yours sincerely, Milly Cervantes [facility] Telehealth Telehealth Location of provider rendering services: practice address Location of patient: address on file Patient Identification confirmed using: Name, : Yes Telehealth method: voice only Patient verbally consented to treatment: Yes Patient verbally consented to billing insurance company: Yes Patient informed of any privacy concerns related to visit: Yes Minutes spent on Phone/Video with Pt.: 35 Coding Level of Care Code Tele Est Pt Level 4 (00869) Diagnoses Elevated PSA R97.20
== END 2023-09-26 16:26 | disposition home or self-care (01) ==
LOC: HO.HUSH 14:58
PROVIDERS: PCP Family Medicine; Visit Provider Nurse Practitioner Family
DX: R97.20 Elevated prostate specific antigen [PSA] (principal)
CPT/HCPCS: 99214

== ENCOUNTER → 2023-09-26 14:58 | Outpatient (BNVA) | payer OTHER, SELFPAY | PROVIDERS: PCP Family Medicine; Visit Provider Nurse Practitioner Family ==

== ENCOUNTER 2023-12-25 15:55 | Outpatient (AMB) | payer OTHER, SELFPAY ==
--- NOTE | 2023-12-25 15:56 | A.OFFVIS_ITS ---
Intake Visit Reasons: biopsy discussion Intake Note: Patient presents today for a follow up on: Biopsy Discussion Meds- None Allergies to Antibiotic- No Known Allergies Blood Thinner- None Brim Pouncing Machine Operator Required: No Allergies No Known Allergies [No Known Allergies*] Allergy (Verified 12/25/23 16:04) Medication List - Last Reconciled 12/25/23 by FRANCO Hernandez- lisinopril 10 mg PO DAILY metoprolol succinate ER 100 mg PO DAILY HPI Comments Details: Cole is a 63-year-old male patient of Dr. Blackburn who was accompanied by his Lety during todays telehealth visit. He has a past medical history of pre diabetes, hypercholesteremia, and hypertension. He is being followed up on today via telehealth for his elevated PSA. Recent PSA and retroperitoneal ultrasound reviewed with the patient today. PSAs are as follows: 08/18-- 5.5 05/18--7.1 08/19-- 7.1 % free PSA 7% Bilateral kidneys with no hydronephrosis or lesions noted. Right kidney with upper peripelvic simple cyst measuring approximately 1 cm. Left kidney with multiple hyperechoic foci along the cortical medullary junction. The bladder is well distended and normal. Bilateral ureteral jets are demonstrated. Pre void bladder volume is approximately 210 mL. Postvoid bladder volume is approximately 10 mL. Prostate volume is approximately 48 mL. Discussed at length potential causes for elevated PSA. PCPT risk calculator results reviewed with the patient today. 13% chance for negative prostate biopsy, 54% chance low-grade prostate cancer, and 33% chance high-grade prostate cancer. He otherwise denies any urinary issues or concerns. He denies urinary urgency, urinary frequency, incontinence, nocturia, hematuria, dysuria, foul smelling urine, changes to urinary stream, flank pain, fever, and or chills. He is happy with his current voiding parameters. When asked he denies any known family history of prostate cancer. RENZO performed during last office visit noted no nodules or masses palpated however right-sided prostate was firm. Discussed at length risks and benefits of further treatment options to include prostate biopsy and or MRI of the prostate. He discusses having seen his daughter in [place] who is highly recommending him to undergo further assessment evaluation of elevated PSA. Discussed obtaining prostate biopsy under sedation if necessary. He otherwise offers no other issues or concerns at this time. [facility] Surgical History History of ear surgery History of surgery on lower extremity Social History Housing: Apartment Alcohol intake: never Patient Tobacco Use Status: Current everyday Tobacco user Tobacco use type: Cigarette Cigarette Packs Per Day: 0.5 Cigarettes Per Day: 10 e-Cigarette/Vaping Use: Never Used Second Hand Smoke Exposure: Yes service: No Current occupational status: employed Cognitive needs: No Hearing needs: No Vision needs: No Review of Systems Const Reports as per HPI Eyes Reports no additional complaints ENT Reports no additional complaints Card Reports as per HPI Resp Reports no additional complaints GI Reports no additional complaints Reports as per HPI Musc Reports no additional complaints Neuro Reports no additional complaints Psych Reports no additional complaints Endo Reports as per HPI Edmar/Lymph Reports no additional complaints Aller/Immun Reports no additional complaints Physical Exam Const General: cooperative Orientation/consciousness: patient oriented x3 Resp Effort & Inspection: able to speak in complete sentences Neuro General: patient oriented x3 Psych Speech and movement: Clear speech present Affect: Hostile affect present Insight: Fair insight present (Psych) Judgement: Fair judgement present (Psych) Telehealth Telehealth Telehealth Platform: [facility] Location of provider rendering services: practice address Location of patient: address on file Patient Identification confirmed using: Name, : Yes Telehealth method: video Patient verbally consented to treatment: Yes Patient verbally consented to billing insurance company: Yes Patient informed of any privacy concerns related to visit: Yes Minutes spent on Phone/Video with Pt.: 20 Assessment & Plan Assessment & Plan (1) Elevated PSA: Code(s): R97.20 - Elevated prostate specific antigen [PSA] Category: Medical Plan: Plan Risks and benefits regarding trans rectal ultrasound with prostate biopsy were discussed.? Options of continued surveillance, no treatment and biopsy were offered. The risks include but are not limited to, urinary tract infection, sepsis, difficulty urinating, bleeding into the rectum or bladder that requires intervention and transfusion,and failure to diagnose prostate cancer. The patient understands the options and the risks involved. They wish to proceed. Printed information was provided to ensure he remains off anticoagulation for the appropriate length of time. He may require cardiology or PCP clearance.? An antibiotic will be administered prior to, and following the procedure Plan Discussed at length potential causes for elevated PSA Reviewed PCPT risk calculator results with the patient today; as noted above. Discussed further treatment options to include prostate MRI versus prostate biopsy verses surveillance monitoring; risks and benefits of these interventions were discussed. He currently denies any bothersome urinary issues or concerns. Reports be happy with current voiding parameters. Will schedule for prostate biopsy. Prescription provided for antibiotic therapy; discussed specific instructions of taking day before procedure, day of procedure, and day after procedure. Follow-up status post prostate biopsies per doctor's orders; or sooner with any issues, concerns, and or questions. Medications: New levofloxacin take 1 tablet day before procedure, 1 tablet day of procedure and 1 tablet day after procedure 500 mg PO daily 3 days 3 tabs 0RF Patient Instructions: The patient had an opportunity to ask questions regarding the treatment plan. All questions were answered. Physical exam, labs, and imaging were discussed and reviewed in detail. As well as risks, benefits, and discussion of treatment choices. No major barriers to understanding were identified. The patient expressed understanding and agreement with the above treatment plan. The patient was made aware they should contact our office by phone for worsening of their current condition, the appearance of new symptoms, or with any questions or concerns. Compliance is encouraged with any medications and follow up testing that is ordered. It is a privilege to be allowed the opportunity to participate in? your urological care.? Again, if you have any questions or concerns If you have any questions or concerns please do not hesitate to contact me. The office is [phone]. This note is constructed using voice recognition software. While every effort has been made to ensure accuracy electronic imaging system operator errors may have been included. Yours sincerely, FLORA Hernandez Coding Level of Care Code Tele Est Pt Level 4 (80392) Diagnoses Elevated PSA R97.20
== END 2023-12-25 16:07 | disposition home or self-care (01) ==
LOC: HO.HUSH 15:55
PROVIDERS: PCP Family Medicine; Visit Provider Nurse Practitioner Family
DX: R97.20 Elevated prostate specific antigen [PSA] (principal)
CPT/HCPCS: 99214

== ENCOUNTER → 2023-12-25 15:55 | Outpatient (BNVA) | payer OTHER, SELFPAY | PROVIDERS: PCP Family Medicine; Visit Provider Nurse Practitioner Family ==

== ENCOUNTER → 2024-01-23 16:28 | Outpatient (AMB) | payer OTHER, SELFPAY ==
--- NOTE | 2024-01-23 16:30 | A.OFFPC_ITS ---
Vital Signs 01/23/24 16:33 Height 5 ft 9 in Weight 149 lb BMI 22.0 BP 132/70 Blood Pressure Location Lt brachial Position Sitting Pulse 83 Pulse Source Pulse Oximeter Pulse Oximetry (%) 96 Oxygen Delivery Method Room Air Intake Visit Reasons: 3 month Follow Up Intake Note: Patient is here to follow up on HLD, HTN, Pre-DM. Community Action Worker Required: No Hospice Admitting Clerk: Present Accompanied by: Spouse Allergies No Known Allergies [No Known Allergies*] Allergy (Verified 01/23/24 16:32) Medication List - Last Reconciled 01/23/24 by Daquan Blackburn MD levofloxacin 500 mg PO daily 3 days lisinopril 10 mg PO DAILY metoprolol succinate ER 100 mg PO DAILY Tobacco use date assessed: 01/23/24 Fall risk assessment: No Falls in past year Last assessed Fall Risk: 01/23/24 Dental Screening Dental Screen Date: 09/25/23 HPI 3 month Follow Up HPI Details 64 y/o male presents to f/u hypertension , chronic conditions. Blood pressure today 132/70. She is on lisinopril 10mg, metoprolol 100mg daily. [facility] Surgical History History of ear surgery History of surgery on lower extremity Social History Housing: Apartment Alcohol intake: never Patient Tobacco Use Status: Current everyday Tobacco user Tobacco use type: Cigarette Cigarette Packs Per Day: 0.5 Cigarettes Per Day: 10 e-Cigarette/Vaping Use: Never Used Second Hand Smoke Exposure: Yes service: No Current occupational status: employed Cognitive needs: No Hearing needs: No Vision needs: No Questionnaire PHQ-9 Over the last 2 weeks, how often have you been bothered by any of the following problems? 1. Little interest or pleasure in doing things: not at all 2. Feeling down, depressed, or hopeless: not at all 3. Trouble falling or staying asleep, or sleeping too much: not at all 4. Feeling tired or having little energy: not at all 5. Poor appetite or overeating: not at all 6. Feeling bad about yourself - or that you are a failure or have let yourself or your family down: not at all 7. Trouble concentrating on things, such as reading the newspaper or watching television: not at all 8. Moving or speaking so slowly that other people could have noticed. Or the opposite - being so fidgety or restless that you have been moving around a lot more than usual: not at all 9. Thoughts that you would be better off or of hurting yourself in some way: not at all Total score: 0 Depression Screening Interpretation: Negative Depression Screening Done: Yes Source: Developed by Drs. Matti Richard, Clarita Somers, Mohsen Longoria and colleagues, with an educational juli from [employer]. Thrive Questionnaire Date Thrive assessed: 01/23/24 I am a: Patient What is your living situation today?: I have a steady place to live Within the past 12 months, did the food you bought not last and you didn't have the money to get more?: Never true Within the past 12 months, did you worry whether your food would run out before you got money to buy more?: Never true Do you have trouble paying for medicines?: No Do you have trouble getting transportation to medical appointments?: No Do you have trouble paying your heating and electricity bill?: No Do you have trouble taking care of your child, family member or friend?: No Do you have trouble with day-to-day activities such as bathing, preparing meals, shopping, managing finances, etc.?: No Are you currently unemployed and looking for a job?: No Are you interested in more education?: No Currently or been in a relationship where the following occur: No concerns reported THRIVE Score: 0 AUDIT C Alcohol Use Questionnaire (AUDIT-C) 1. How often do you have a drink containing alcohol?: Never Total Score: 0 MAUREEN-7 AMB Questionnaire MAUREEN-7 Date MAUREEN - 7 assessed: 01/23/24 Feeling nervous, anxious, or on edge: 0 = Not at all Not being able to stop or control worryin = Not at all Worrying too much about different things: 0 = Not at all Trouble relaxin = Not at all Being so restless that it is hard to sit still: 0 = Not at all Becoming easily annoyed or irritable: 0 = Not at all Feeling afraid as if something awful might happen: 0 = Not at all Total MAUREEN-7 score (0-4 normal; 5-9 mild; 10-14 moderate; 15-21 severe): 0 Source: Developed by Drs. Matti Richard, Clarita Somers, Mohsen Longoria and colleagues, with an educational juli from [employer]. Review of Systems Const Denies chills, Denies fatigue, Denies fever(s), Denies headache(s) and Denies weakness ENT Denies dizziness and Denies headache(s) Card Denies dyspnea Resp Denies cough, Denies dyspnea, Denies wheezing and Denies other (shortness of breath) Musc Denies numbness and Denies tingling Neuro Denies dizziness, Denies headache(s), Denies numbness, Denies tingling and Denies weakness Psych Denies anxiety and Denies depression Endo Denies fatigue Aller/Immun Denies wheezing Physical exam (Primary Care) Vital Signs: Last Vital Signs Pulse 83 01/23/24 16:33 BP 132/70 01/23/24 16:33 Pulse Ox 96 01/23/24 16:33 Oxygen Delivery Method Room Air 01/23/24 16:33 BMI result Body Mass Index 22.0 Tobacco/Smoking Status: Tobacco use Status Tobacco use date assessed 01/23/24 01/23/24 16:40 Patient Tobacco Use Status Current everyday Tobacco 01/23/24 16:40 Tobacco use type Cigarette 01/23/24 16:40 e-Cigarette/Vaping Use Never Used 01/23/24 16:40 PHQ-9: PHQ-9 Score PHQ-9: Total score 0 01/23/24 16:40 Depression Screening Interpretation: Negative Thrive Assessment: Date of Thrive Assessment Date Thrive assessed 01/23/24 01/23/24 16:40 Currently or been in a relationship where the following occur: No concerns reported Const General: well developed; No acute distress Nutritional Appearance: well nourished Orientation/consciousness: patient oriented x3 HENMT Head: Yes normocephalic and Yes atraumatic Eyes General: appearance normal, both eyes and all related structures Pupils: Equal, round and reactive pupils present EOM: EOMs intact bilaterally Resp Effort & Inspection: normal respiratory effort Auscultation: clear to auscultation bilaterally Cardio Rate: regular rate Rhythm: regular rhythm Heart sounds: S1 normal heart sound present, S2 normal heart sound present, no gallops, no murmurs and no rubs Neuro General: patient oriented x3 and gait normal Cranial nerves: Yes Equal, round and reactive pupils present Psych Affect: normal affect Assessment and Plan Assessment & Plan (1) Essential hypertension: Code(s): I10 - Essential (primary) hypertension Plan: Blood?pressure?is?controlled.??Goal?is?less?than?140/90 A?little?higher?than?usual?however ?and?I?encouraged?him?to?watch?salt/sodium?in?diet Continue?current?medication?regimen (2) Hyperlipidemia: Code(s): E78.5 - Hyperlipidemia, unspecified Plan: LDL?cholesterol?is?above?goal?of?less?than?100 Encouraged?a?diet?lower?in?saturated?fats?and?cholesterol We?will?recheck?lipids?prior?to?his?next?visit?and?review (3) Elevated PSA: Code(s): R97.20 - Elevated prostate specific antigen [PSA] Plan: Elevated?PSA?in?smoker He?has?been?seen?by?Urology?and?has?a?biopsy?scheduled Follow-up?with?urology?as?recommended Orders: Orders Comprehensive [place]. Panel Fast Today E78.5 - Hyperlipidemia, unspecified, Z00.00 - Encounter for general adult medical examination without abnormal findings Hemoglobin A1c Today R73.01 - Impaired fasting glucose, R73.03 - Prediabetes Lipid Panel Today E78.5 - Hyperlipidemia, unspecified, Z00.00 - Encounter for general adult medical examination without abnormal findings Coding Level of Care Code Est Pt Level 3 (08603) Diagnoses Essential hypertension I10 Hyperlipidemia E78.5 Elevated PSA R97.20
[2024-01-23 16:33] VITALS: BP 132/70; PULSE 83; O2SAT 96; BMI 22.0
== END ==
PROVIDERS: PCP Family Medicine; Visit Provider Family Medicine
DX: I10 Essential (primary) hypertension (principal); E78.5 Hyperlipidemia, unspecified; R97.20 Elevated prostate specific antigen [PSA]
CPT/HCPCS: 99213

== ENCOUNTER 2024-02-23 07:59 | Outpatient (REF) | payer OTHER, SELFPAY ==
[2024-02-23] MEDS: Lidocaine HCl 1 % MPF 5 ML VIAL 10 ML SUBCUT (09:01)
--- NOTE | 2024-02-23 09:02 | W.PM.OPN ---
Operative Note Operative Note Date of Service: 02/23/24 Narrative: PreOperative Diagnosis:? ? Elevated PSA Post Operative Diagnosis:??Elevated PSA Procedure:?1. Transrectal ultrasound guided biopsy of the prostate 12 core 2. Transrectal ultrasound measurement of prostate 3. Transrectal ultrasound guided pudendal nerve block Surgeon:?Dr Poornima Oliver Anesthesia:? Local, Lidocaine Indications for procedure: Elevated PSA Procedure: Preoperative antibiotics confirmed. After informed consent was verified the patient was placed on the procedure table in left lateral position. Patient identity confirmed. Safety pause time-out performed. Digital rectal exam performed to dilate rectal sphincter, iodine mixed with lubricant jelly 30 cc placed per rectum. Ultrasound probe was placed per rectum. The prostate was visualized. Prostatic calcifications noted in the transition zone. The prostate was measured width 3.80 cm, height 4.39 cm, length 2.78 cm with a volume of 24.3 mL. An ultrasound guided pudendal nerve block was performed using 10 cc of 1% lidocaine. A 12 core biopsy was performed from the left base, left mid, left apex and right base, mid, apex 2 biopsies from each section. The ultrasound probe was removed and digital palpation of the prostate for 1-2 minutes for hemostasis was performed. The patient tolerated the procedure well. Complications: None
== END 2024-02-23 08:00 | disposition home or self-care (01) ==
LOC: HO.US 07:59
PROVIDERS: PCP Family Medicine; Visit Provider Urology
DX: R97.20 Elevated prostate specific antigen [PSA] (principal)
CPT/HCPCS: 55700; 76942; 88305; 88344

== ENCOUNTER → 2024-02-23 07:59 | Outpatient (BNV) | payer OTHER, SELFPAY | PROVIDERS: PCP Family Medicine; Visit Provider Urology | DX: R97.20 Elevated prostate specific antigen [PSA] (principal) | CPT/HCPCS: 55700; 76942 ==

== ENCOUNTER 2024-03-13 15:52 | Outpatient (AMB) | payer OTHER, SELFPAY ==
--- NOTE | 2024-03-13 15:54 | A.OFFVIS_ITS ---
Intake Visit Reasons: Prostate biopsy results Intake Note: Patient presents today for a follow up on: Biopsy Discussion Meds- None Allergies to Antibiotic- No Known Allergies Blood Thinner- None Multimedia Project Manager Required: No Allergies No Known Allergies [No Known Allergies*] Allergy (Verified 03/13/24 15:55) Medication List - Last Reconciled 03/13/24 by Poornima Oliver MD dutasteride (Avodart) 0.5 mg PO DAILY levofloxacin 500 mg PO daily 3 days lisinopril 10 mg PO DAILY metoprolol succinate ER 100 mg PO DAILY HPI Comments Details: 03/13/24--Cole is status post prostate biopsy on 02/23/2024, I have reviewed results, 1 positive biopsy, right base medial Thaddeus 3+3=6. I have discussed treatment options to include Radical prostatectomy: In this operation, the surgeon (urologist) removes the entire prostate gland plus some of the tissue around it, including the seminal vesicles. Sometimes nearby lymph nodes are removed as well. The major possible side effects of radical prostatectomy are: Urinary incontinence and Erectile dysfunction Radiation Therapy, which uses high-energy rays or particles to kill cancer cells. External beam radiation vs Brachytherapy (internal radiation). Active Surveillance- reasonable in localized early diagnosed prostate cancer. Plan active surveillance MRI and PSA in 4 months. avodart for enlarged prostate. Review of chart: 12/25/23--Cole is a 63-year-old male patient of Dr. Blackburn who was accompanied by his Lety during todays telehealth visit.-- has a past medical history of pre diabetes, hypercholesteremia, and hypertension. He is being followed up on today via telehealth for his elevated PSA. Recent PSA and retroperitoneal ultrasound reviewed with the patient today. PSAs are as follows: 08/18-- 5.5 05/18--7.1 08/19-- 7.1 % free PSA 7% Bilateral kidneys with no hydronephrosis or lesions noted. Right kidney with upper peripelvic simple cyst measuring approximately 1 cm. Left kidney with multiple hyperechoic foci along the cortical medullary junction. The bladder is well distended and normal. Bilateral ureteral jets are demonstrated. Pre void bladder volume is approximately 210 mL. Postvoid bladder volume is approximately 10 mL. Prostate volume is approximately 48 mL. Discussed at length potential causes for elevated PSA. PCPT risk calculator results reviewed with the patient today. 13% chance for negative prostate biopsy, 54% chance low-grade prostate cancer, and 33% chance high-grade prostate cancer. He otherwise denies any urinary issues or concerns. He denies urinary urgency, urinary frequency, incontinence, nocturia, hematuria, dysuria, foul smelling urine, changes to urinary stream, flank pain, fever, and or chills. He is happy with his current voiding parameters. When asked he denies any known family history of prostate cancer. RENZO performed during last office visit noted no nodules or masses palpated however right-sided prostate was firm. Discussed at length risks and benefits of further treatment options to include prostate biopsy and or MRI of the prostate. He discusses having seen his daughter in [place] who is highly recommending him to undergo further assessment evaluation of elevated PSA. Discussed obtaining prostate biopsy under sedation if necessary. He otherwise offers no other issues or concerns at this time. [facility] Surgical History History of ear surgery History of surgery on lower extremity Social History Housing: Apartment Alcohol intake: never Patient Tobacco Use Status: Current everyday Tobacco user Tobacco use type: Cigarette Cigarette Packs Per Day: 0.5 Cigarettes Per Day: 10 e-Cigarette/Vaping Use: Never Used Second Hand Smoke Exposure: Yes service: No Current occupational status: employed Cognitive needs: No Hearing needs: No Vision needs: No Review of Systems Const All systems reviewed & are unremarkable except as noted in HPI and below Reports no additional complaints Eyes Reports no additional complaints ENT Reports no additional complaints Card Reports no additional complaints Resp Reports no additional complaints GI Reports no additional complaints Reports as per HPI Musc Reports no additional complaints Skin/Breast Reports system reviewed and no additional complaints, except as documented Neuro Reports no additional complaints Psych Reports no additional complaints Endo Reports no additional complaints Edmar/Lymph Reports no additional complaints Aller/Immun Reports no additional complaints Results Reviewed Results Reviewed: Collected: 02/23/24 Location: [facility] Received: 02/23/24 Diagnosis A: Left base lateral: Benign prostatic tissue; negative for malignancy. B: Left base medial: Benign prostatic tissue; negative for malignancy. C: Left mid lateral: Benign prostatic tissue; negative for malignancy. D: Left mid medial: Benign prostatic tissue; negative for malignancy. E: Left apex lateral: Benign prostatic tissue; negative for malignancy. F: Left apex medial: Benign prostatic tissue; negative for malignancy. G: Right base lateral: Benign prostatic tissue; negative for malignancy. H: Right base medial: Prostatic adenocarcinoma, Thaddeus score 3+3=6 (grade group 1) involving 5% of the tissue. I: Right mid lateral: Benign prostatic tissue; negative for malignancy. J: Right mid medial: Benign prostatic tissue; negative for malignancy. K: Right apex lateral: Benign prostatic tissue; negative for malignancy. L: Right apex medial: Benign prostatic tissue; negative for malignancy. Data synopsis - Prostate needle biopsy Histologic type: Adenocarcinoma, acinar type Histologic grade: Thaddeus score: 3+3=6 % of pattern 4: 0% % of pattern 5: 0% Grade group: 1 Tumor quantitation: Number cores positive: 1 Total number of cores: 12 % of tissue involved: Less than 1% of all tissue examined Periprostatic fat inv.: Not identified Seminal vesicle inv.: Not identified [facility]: [facility]: 64[id number]#: [id number] Page 1 of 3 Surgical Pathology [id number] Perineural inv.: Not identified LVI: Not identified Clinical History Elevated PSA Microscopic Description A-L. Microscopic sections reviewed. PIN4 multiplex immunostains support the diagnoses in D and H. Material Received A: Left base lateral B: Left base medial C: Left mid lateral D: Left mid medial E: Left apex lateral F: Left apex medial Date of Service: 07/26/23 EXAMINATION: US RETROPERITONEAL LIMITED (RENAL ONLY) FINDINGS: RIGHT KIDNEY: 9.6 x 4.0 x 4.2 cm (SAG x AP x TRV). The kidney is normal in size, contour, and echogenicity. Renal cortical thickness is normal. No renal calculi or hydronephrosis. Right upper parapelvic simple cyst is seen measuring 0.7 x 1.0 x 0.8 cm in size LEFT KIDNEY: 10.3 x 5.1 x 4.9 cm (SAG x AP x TRV). The kidney is normal in size, contour, and echogenicity. Renal cortical thickness is normal. No calculi or focal parenchymal lesions. No hydronephrosis. Multiple hyperechoic foci are seen mostly along the corticomedullary junction. -- IMPRESSION: 1. Simple right renal cyst is found, for which no follow up imaging is recommended. 2. Multiple hyperechoic foci are seen mostly along the corticomedullary junction of the left kidney. The appearance is nonspecific and could reflect medullary nephrocalcinosis. No nephrocalcinosis however, is seen on CT scan of abdomen and pelvis on 06/19/2019. Date of Service: 08/15/23 EXAMINATION: US PELVIS LIMITED (BLADDER) FINDINGS: BLADDER: Well distended and normal. Bilateral ureteral jets are demonstrated. Prevoid bladder volume is 209 mL. Postvoid bladder volume is 11 mL. OTHER: Prostate dimensions are 6.3 x 3.3 x 4.5 cm, volume 47.9 mL. US/US bladder IMPRESSION: 1. Unremarkable ultrasound appearance of the urinary bladder. 2. There is prostatomegaly. Assessment & Plan Assessment & Plan (1) Adenocarcinoma of prostate: Code(s): C61 - Malignant neoplasm of prostate Category: Medical (2) Elevated PSA: Code(s): R97.20 - Elevated prostate specific antigen [PSA] Category: Medical Plan Active surveillance. MRI and PSA In 4 months. Avodart daily. Orders: Orders MR pelvis wo/w con 4 Months C61 - Malignant neoplasm of prostate, R97.20 - Elevated prostate specific antigen [PSA] PSA,Total (Free>4and<10) 4 Months C61 - Malignant neoplasm of prostate, R97.20 - Elevated prostate specific antigen [PSA] Medications: New dutasteride (Avodart) 0.5 mg PO DAILY 30 caps 5RF Patient Instructions: The patient had an opportunity to ask questions regarding treatment plan. The patient expressed understanding and agreement with the above treatment plan. The patient is aware they should contact our office by phone for worsening of their current condition or the appearance of new symptoms. Compliance is encouraged with any medications and followup testing that is ordered. It is a privilege to be allowed the opportunity to participate in the urologic care of your patient. If you have any questions or concerns regarding treatment for the above conditions please do not hesitate to contact me. The office telephone contact is [phone]. This note is constructed in part using voice recognition software. While every effort has been made to ensure accuracy ethyl blender errors may have been included. Yours sincerely, Poornima Oliver MD Coding Level of Care Code Est Pt Level 4 (58075) Diagnoses Adenocarcinoma of prostate C61 Elevated PSA R97.20
== END 2024-03-13 16:15 | disposition home or self-care (01) ==
PROVIDERS: PCP Family Medicine; Visit Provider Urology
DX: C61 Malignant neoplasm of prostate (principal); R97.20 Elevated prostate specific antigen [PSA]
CPT/HCPCS: 99214

== ENCOUNTER → 2024-03-13 15:52 | Outpatient (BNVA) | payer OTHER, SELFPAY | PROVIDERS: PCP Family Medicine; Visit Provider Urology ==

== ENCOUNTER 2024-04-20 09:25 | Outpatient (REF) | payer OTHER, SELFPAY ==
[2024-04-20 10:40] LABS: Estimated Average Glucose 120 mg/dL; Hemoglobin A1C 147.7175 umol/L; Hemoglobin A1c % 5.8 % (<6.0); Total Hemoglobin (HGBA1C) 3745.5864 umol/L
[2024-04-20 11:07] LABS: Alanine Aminotransferase 17 U/L (0-40); Albumin Level 4.3 g/dL (3.5-5.0); Alkaline Phosphatase 76 U/L (39-117); Anion Gap 12 (12-20); Aspartate Amino Transferase 26 U/L (5-37); Bilirubin Total 0.6 mg/dL (0.0-1.0); Blood Urea Nitrogen 17 mg/dL (9-16); Carbon Dioxide 30 mmol/L (22-29); Chloride 104 mmol/L (96-108); Cholesterol 173 mg/dL (<200); Estimated Glomerular Filt Rate > 60; Glucose Fasting 101 mg/dL (60-99); HDL Cholesterol 39 mg/dL (>40); LDL Cholesterol Calculated 112 mg/dL (<100); Potassium 5.5 mmol/L (3.3-5.1); Sodium 140 mmol/L (135-145); Triglycerides 112 mg/dL (<150)
== END 2024-04-20 09:26 | disposition home or self-care (01) ==
LOC: HO.LAB 09:25
PROVIDERS: PCP Family Medicine; Visit Provider Family Medicine
DX: Z00.00 Encounter for general adult medical examination without abnormal findings (principal); E78.5 Hyperlipidemia, unspecified; R73.01 Impaired fasting glucose; R73.03 Prediabetes
CPT/HCPCS: 36415; 80053; 80061; 83036

== ENCOUNTER 2024-04-24 16:19 | Outpatient (AMB) | payer OTHER, SELFPAY ==
--- NOTE | 2024-04-24 16:24 | A.OFFPC_ITS ---
Vital Signs 04/24/24 16:27 Height 5 ft 9 in Weight 149 lb 6 oz BMI 22.1 BP 114/53 L Blood Pressure Location Rt brachial Position Sitting Respiration 16 Pulse 82 Pulse Source Pulse Oximeter Temp 98.8 F Temp Source Temporal Artery Scan Pulse Oximetry (%) 94 Oxygen Delivery Method Room Air Intake Visit Reasons: 3 month follow up Intake Note: f/u for labs Allergies No Known Allergies [No Known Allergies*] Allergy (Verified 04/24/24 16:25) Medication List - Last Reconciled 04/24/24 by Daquan Blackburn MD dutasteride (Avodart) 0.5 mg PO DAILY lisinopril 10 mg PO DAILY metoprolol succinate ER 100 mg PO DAILY 90 days Tobacco use date assessed: 01/23/24 Dental Screening Dental Screen Date: 09/25/23 HPI 3 month follow up HPI Details 64 y/o male presents to f/u hyperlipidem ia, pre-diabetes and hypertension. Labs drawn 04/20/24. Reviewed labs with pt. A1c 5.8%. Triglycerides 112. TC 173. LDL 112. HDL low at 39. Blood pressure today 114/53, 82p. [facility] Surgical History History of ear surgery History of surgery on lower extremity Social History Housing: Apartment Alcohol intake: never Patient Tobacco Use Status: Current everyday Tobacco user Tobacco use type: Cigarette Cigarette Packs Per Day: 0.5 Cigarettes Per Day: 10 e-Cigarette/Vaping Use: Never Used Second Hand Smoke Exposure: Yes service: No Current occupational status: employed Cognitive needs: No Hearing needs: No Vision needs: No Questionnaire PHQ-9 Over the last 2 weeks, how often have you been bothered by any of the following problems? 1. Little interest or pleasure in doing things: not at all 2. Feeling down, depressed, or hopeless: not at all 3. Trouble falling or staying asleep, or sleeping too much: not at all 4. Feeling tired or having little energy: not at all 5. Poor appetite or overeating: not at all 6. Feeling bad about yourself - or that you are a failure or have let yourself or your family down: not at all 7. Trouble concentrating on things, such as reading the newspaper or watching television: not at all 8. Moving or speaking so slowly that other people could have noticed. Or the opposite - being so fidgety or restless that you have been moving around a lot more than usual: not at all 9. Thoughts that you would be better off or of hurting yourself in some way: not at all Total score: 0 Source: Developed by Drs. Matti Richard, Clarita Somers, Mohsen Longoria and colleagues, with an educational juli from [employer]. Thrive Questionnaire Date Thrive assessed: 01/23/24 I am a: Patient What is your living situation today?: I have a steady place to live Within the past 12 months, did the food you bought not last and you didn't have the money to get more?: Never true Within the past 12 months, did you worry whether your food would run out before you got money to buy more?: Never true Do you have trouble paying for medicines?: No Do you have trouble getting transportation to medical appointments?: No Do you have trouble paying your heating and electricity bill?: No Do you have trouble taking care of your child, family member or friend?: No Do you have trouble with day-to-day activities such as bathing, preparing meals, shopping, managing finances, etc.?: No Are you currently unemployed and looking for a job?: No Are you interested in more education?: No Please select the resources that you would like help with: None Currently or been in a relationship where the following occur: No concerns reported THRIVE Score: 0 AUDIT C Alcohol Use Questionnaire (AUDIT-C) 1. How often do you have a drink containing alcohol?: Never Total Score: 0 MAUREEN-7 AMB Questionnaire MAUREEN-7 Date MAUREEN - 7 assessed: 01/23/24 Feeling nervous, anxious, or on edge: 0 = Not at all Not being able to stop or control worryin = Not at all Worrying too much about different things: 0 = Not at all Trouble relaxin = Not at all Being so restless that it is hard to sit still: 0 = Not at all Becoming easily annoyed or irritable: 0 = Not at all Feeling afraid as if something awful might happen: 0 = Not at all Total MAUREEN-7 score (0-4 normal; 5-9 mild; 10-14 moderate; 15-21 severe): 0 Source: Developed by Drs. Matti Richard, Clarita Somers, Mohsen Longoria and colleagues, with an educational juli from [employer]. Review of Systems Const Denies chills, Denies fatigue, Denies fever(s), Denies headache(s) and Denies weakness ENT Denies dizziness and Denies headache(s) Card Denies dyspnea Resp Denies cough, Denies dyspnea, Denies wheezing and Denies other (shortness of breath) Musc Denies numbness and Denies tingling Neuro Denies dizziness, Denies headache(s), Denies numbness, Denies tingling and Denies weakness Psych Denies anxiety and Denies depression Endo Denies fatigue Aller/Immun Denies wheezing Physical exam (Primary Care) Vital Signs: Last Vital Signs Temp 98.8 F 04/24/24 16:27 Pulse 82 04/24/24 16:27 Resp 16 04/24/24 16:27 BP 114/53 L 04/24/24 16:27 Pulse Ox 94 04/24/24 16:27 Oxygen Delivery Method Room Air 04/24/24 16:27 BMI result Body Mass Index 22.1 Tobacco/Smoking Status: Tobacco use Status Tobacco use date assessed 01/23/24 04/24/24 16:24 Patient Tobacco Use Status Current everyday Tobacco 04/24/24 16:24 Tobacco use type Cigarette 04/24/24 16:24 e-Cigarette/Vaping Use Never Used 04/24/24 16:24 PHQ-9: PHQ-9 Score PHQ-9: Total score 0 04/24/24 16:49 Thrive Assessment: Date of Thrive Assessment Date Thrive assessed 01/23/24 04/24/24 16:24 Currently or been in a relationship where the following occur: No concerns reported Const General: well developed; No acute distress Nutritional Appearance: well nourished Orientation/consciousness: patient oriented x3 HENMT Head: Yes normocephalic and Yes atraumatic Eyes General: appearance normal, both eyes and all related structures Pupils: Equal, round and reactive pupils present EOM: EOMs intact bilaterally Resp Effort & Inspection: normal respiratory effort Auscultation: clear to auscultation bilaterally Cardio Rate: regular rate Rhythm: regular rhythm Heart sounds: S1 normal heart sound present, S2 normal heart sound present, no gallops, no murmurs and no rubs Neuro General: patient oriented x3 and gait normal Cranial nerves: Yes Equal, round and reactive pupils present Psych Affect: normal affect Coding Level of Care Code Est Pt Level 4 (78099) Diagnoses Essential hypertension I10 Hyperlipidemia E78.5 Pre-diabetes R73.03 Low HDL (under 40) E78.6 Assessment & Plan Assessment & Plan (1) Essential hypertension: Code(s): I10 - Essential (primary) hypertension Category: Medical Plan: Blood?pressure?is?well?controlled.??Goal?is?less?than?140/90 Continue?current?medications (2) Hyperlipidemia: Code(s): E78.5 - Hyperlipidemia, unspecified Category: Medical Plan: LDL?mildly?elevated?and?HDL?slightly?low Encouraged?a?diet?lower?in?saturated?fats?and?cholesterol Encouraged?exercise (3) Pre-diabetes: Code(s): R73.03 - Prediabetes Category: Medical Plan: A1c?5.8%; pre?diabetes?range Encouraged?a?diet?low?in?sugars?and?starches Encouraged?exercise (4) Low HDL (under 40): Code(s): E78.6 - Lipoprotein deficiency Category: Medical Plan: As?above,?encouraged?exercise Medications: Changed From metoprolol succinate ER 100 mg PO DAILY 90 tabs 0RF To metoprolol succinate ER 100 mg PO DAILY 90 days 90 tabs 3RF Refilled lisinopril 10 mg PO DAILY 90 tabs 2RF
[2024-04-24 16:27] VITALS: BP 114/53; PULSE 82; RESP 16; TEMP 37.1; O2SAT 94; BMI 22.1
== END 2024-04-24 16:30 ==
LOC: HO.HMCFM 16:20
PROVIDERS: PCP Family Medicine; Visit Provider Family Medicine
DX: I10 Essential (primary) hypertension (principal); E78.5 Hyperlipidemia, unspecified; R73.03 Prediabetes; E78.6 Lipoprotein deficiency

== ENCOUNTER → 2024-04-24 16:19 | Outpatient (BNVA) | payer OTHER, SELFPAY | PROVIDERS: PCP Family Medicine; Visit Provider Family Medicine ==

== ENCOUNTER 2024-07-06 09:28 | Outpatient (REF) | payer OTHER, SELFPAY ==
[2024-07-06 11:33] LABS: PSA,Total (Free>4and<10) 7.28 ng/mL (0.00-4.00)
[2024-07-09 14:13] LABS: Free Prostate Spec Ag 0.8 ng/mL; Percent Free Prostate Spec Ag 11 % (calc) (>25); Prostate Specific Ag Total 7.6 ng/mL (< OR = 4.0)
== END 2024-07-06 09:29 | disposition home or self-care (01) ==
LOC: HO.LAB 09:28
PROVIDERS: PCP Family Medicine; Visit Provider Urology
DX: C61 Malignant neoplasm of prostate (principal); R97.20 Elevated prostate specific antigen [PSA]; Z12.5 Encounter for screening for malignant neoplasm of prostate
CPT/HCPCS: 36415; 84153; 84154

== ENCOUNTER 2024-07-27 12:48 | Outpatient (REF) | payer OTHER, SELFPAY ==
--- NOTE | ~2024-07-27 | MR_ITS ---
EXAMINATION: MR PELVIS WITHOUT THEN WITH IV CONTRAST HISTORY: C61 - Malignant neoplasm of prostate TECHNIQUE: 1.5T body coil survey of the pelvis was performed. Phase array coil imaging of the prostate was performed in multiplanar high resolution axial, coronal, sagittal fast spin echo T2 and axial T1 weighted imaging sequences. Axial diffusion imaging at intermediate and high field performed with ADC mapping. Next, 7 mL Gadavist was given by intravenous infusion, and dynamic axial imaging performed. COMPARISON: There are no prior studies for comparison. CLINICAL DATA: Most recent PSA: 7.6 ng/mL on 07/06/2024 PSA Density: 0.49 ng/mL squared Prostate Biopsy: Positive biopsy on 02/23/2024 with a [place] score 3+3 = 6. FINDINGS: Prostate size: 3.3 x 2.2 x 4.1 cm. Calculated prostate volume is 15.5 mL. Hemorrhage: None. Transitional Zone: There is mild heterogeneous nodular hypertrophy of the transitional zone. Peripheral Zone: The peripheral zone demonstrates diffusely decreased T2 signal intensity. No focal lesion is seen. Diffusion-weighted images are nondiagnostic due to artifact from a large amount of gas within the rectum. Seminal Vesicles/Ejaculatory Ducts: Symmetric and normal in signal and caliber. Pelvic Lymph Nodes: No obturator or internal iliac lymph nodes meeting size criteria for adenopathy. Marrow Signal: Normal marrow signal and enhancement without focal lesion identified. MR/MR pelvis wo/w con IMPRESSION: Nondiagnostic diffusion weighted images. Diffusely decreased T2 signal intensity within the peripheral zone without a focal lesion. A repeat study after a bowel enema is suggested. PI-RADS 2: Low (clinically significant cancer is unlikely to be present) PI-RADS Assessment Categories PI-RADS 1: Very low (clinically significant cancer is highly unlikely to be present) PI-RADS 2: Low (clinically significant cancer is unlikely to be present) PI-RADS 3: Intermediate (the presence of clinically significant cancer is equivocal) PI-RADS 4: High (clinically significant cancer is likely to be present) PI-RADS 5: Very high (clinically significant cancer is highly likely to be present) [employer]. MR Prostate Imaging Reporting and Data System version 2.1. [email or web address] Electronically signed by: Matti Russo MD 07/29/2024 09:01 AM MARIZA CRENSHAW
[2024-07-27] MEDS: gadobutroL 7.5 ML VIAL IVPUSH (14:02)
== END 2024-07-27 12:49 | disposition home or self-care (01) ==
LOC: HO.MRI 12:48
PROVIDERS: PCP Family Medicine; Visit Provider Urology
DX: C61 Malignant neoplasm of prostate (principal); R97.20 Elevated prostate specific antigen [PSA]
CPT/HCPCS: 72197; A9585

== ENCOUNTER → 2024-07-27 12:57 | Outpatient (BNV) | payer OTHER, SELFPAY | PROVIDERS: PCP Family Medicine; Visit Provider Radiology Diagnostic Radiology | DX: C61 Malignant neoplasm of prostate (principal) | CPT/HCPCS: 72197 ==

== ENCOUNTER 2024-07-30 16:25 | Outpatient (AMB) | payer OTHER, SELFPAY ==
--- NOTE | 2024-07-30 16:26 | A.OFFPC_ITS ---
Vital Signs 07/30/24 16:30 Height 5 ft 9 in Weight 153 lb BMI 22.6 BP 132/68 Blood Pressure Location Lt brachial Position Sitting Respiration 16 Pulse 84 Pulse Source Pulse Oximeter Temp 97.9 F Temp Source Oral Pulse Oximetry (%) 97 Oxygen Delivery Method Room Air Intake Visit Reasons: f/u HLD, hypertension Intake Note: patient here for follow up on HLD, Hypertention Smoke And Flame Specialist Required: No Allergies No Known Allergies [No Known Allergies*] Allergy (Verified 07/30/24 16:28) Medication List - Last Reconciled 07/30/24 by Daquan Blackburn MD dutasteride (Avodart) 0.5 mg PO DAILY lisinopril 10 mg PO DAILY metoprolol succinate ER 100 mg PO DAILY 90 days Tobacco use date assessed: 07/30/24 Fall risk assessment: No Falls in past year Last assessed Fall Risk: 07/30/24 Dental Screening Dental Screen Date: 07/30/24 Did you have a dental visit in the last 12 months?: No Did you have a dental problem in the last 6 months where you did not have access to dental care?: No Was dental information given to patient?: Patient has dentist HPI f/u HLD, hypertension HPI Details 64 y/o male presents to f/u HTN, pre-coco betes. Last A1c 04/20/24 5.8%. A1c today 07/30/24 is 5.7%. BP today 132/68, 84p. [facility] Surgical History History of ear surgery History of surgery on lower extremity Social History Housing: Apartment Alcohol intake: never Patient Tobacco Use Status: Current everyday Tobacco user Tobacco use type: Cigarette Cigarette Packs Per Day: 0.5 Cigarettes Per Day: 10 e-Cigarette/Vaping Use: Never Used Second Hand Smoke Exposure: Yes service: No Current occupational status: employed Cognitive needs: No Hearing needs: No Vision needs: No Questionnaire PHQ-9 Over the last 2 weeks, how often have you been bothered by any of the following problems? 1. Little interest or pleasure in doing things: not at all 2. Feeling down, depressed, or hopeless: not at all 3. Trouble falling or staying asleep, or sleeping too much: not at all 4. Feeling tired or having little energy: not at all 5. Poor appetite or overeating: not at all 6. Feeling bad about yourself - or that you are a failure or have let yourself or your family down: not at all 7. Trouble concentrating on things, such as reading the newspaper or watching television: not at all 8. Moving or speaking so slowly that other people could have noticed. Or the opposite - being so fidgety or restless that you have been moving around a lot more than usual: not at all 9. Thoughts that you would be better off or of hurting yourself in some way: not at all Total score: 0 Source: Developed by Drs. Matti Richard, Clarita Somers, Mohsen Longoria and colleagues, with an educational juli from [employer]. Thrive Questionnaire Date Thrive assessed: 01/23/24 I am a: Patient What is your living situation today?: I have a steady place to live Within the past 12 months, did the food you bought not last and you didn't have the money to get more?: Never true Within the past 12 months, did you worry whether your food would run out before you got money to buy more?: Never true Do you have trouble paying for medicines?: No Do you have trouble getting transportation to medical appointments?: No Do you have trouble paying your heating and electricity bill?: No Do you have trouble taking care of your child, family member or friend?: No Do you have trouble with day-to-day activities such as bathing, preparing meals, shopping, managing finances, etc.?: No Are you currently unemployed and looking for a job?: No Are you interested in more education?: No Please select the resources that you would like help with: None Currently or been in a relationship where the following occur: No concerns reported THRIVE Score: 0 AUDIT C Alcohol Use Questionnaire (AUDIT-C) 1. How often do you have a drink containing alcohol?: Never Total Score: 0 MAUREEN-7 AMB Questionnaire MAUREEN-7 Date MAUREEN - 7 assessed: 01/23/24 Feeling nervous, anxious, or on edge: 0 = Not at all Not being able to stop or control worryin = Not at all Worrying too much about different things: 0 = Not at all Trouble relaxin = Not at all Being so restless that it is hard to sit still: 0 = Not at all Becoming easily annoyed or irritable: 0 = Not at all Feeling afraid as if something awful might happen: 0 = Not at all Total MAUREEN-7 score (0-4 normal; 5-9 mild; 10-14 moderate; 15-21 severe): 0 Source: Developed by Drs. Matti Richard, Clarita Somers, Mohsen Longoria and colleagues, with an educational juli from [employer]. Review of Systems Const Denies chills, Denies fatigue, Denies fever(s), Denies headache(s) and Denies weakness ENT Denies dizziness and Denies headache(s) Card Denies dyspnea Resp Denies cough, Denies dyspnea, Denies wheezing and Denies other (shortness of breath) Musc Denies numbness and Denies tingling Neuro Denies dizziness, Denies headache(s), Denies numbness, Denies tingling and Denies weakness Psych Denies anxiety and Denies depression Endo Denies fatigue Aller/Immun Denies wheezing Physical exam (Primary Care) Vital Signs: Last Vital Signs Temp 97.9 F 07/30/24 16:30 Pulse 84 07/30/24 16:30 Resp 16 07/30/24 16:30 BP 132/68 07/30/24 16:30 Pulse Ox 97 07/30/24 16:30 Oxygen Delivery Method Room Air 07/30/24 16:30 BMI result Body Mass Index 22.6 Tobacco/Smoking Status: Tobacco use Status Tobacco use date assessed 07/30/24 07/30/24 16:33 Patient Tobacco Use Status Current everyday Tobacco 07/30/24 16:28 Tobacco use type Cigarette 07/30/24 16:28 e-Cigarette/Vaping Use Never Used 07/30/24 16:28 PHQ-9: PHQ-9 Score PHQ-9: Total score 0 07/30/24 16:42 Thrive Assessment: Date of Thrive Assessment Date Thrive assessed 01/23/24 07/30/24 16:28 Currently or been in a relationship where the following occur: No concerns reported Const General: well developed; No acute distress Nutritional Appearance: well nourished Orientation/consciousness: patient oriented x3 [facility] Head: Yes normocephalic and Yes atraumatic Eyes General: appearance normal, both eyes and all related structures Pupils: Equal, round and reactive pupils present EOM: EOMs intact bilaterally Resp Effort & Inspection: normal respiratory effort Auscultation: clear to auscultation bilaterally Cardio Rate: regular rate Rhythm: regular rhythm Heart sounds: S1 normal heart sound present, S2 normal heart sound present, no gallops, no murmurs and no rubs Neuro General: patient oriented x3 and gait normal Cranial nerves: Yes Equal, round and reactive pupils present Psych Affect: normal affect Coding Level of Care Code Est Pt Level 3 (50040) Diagnoses Essential hypertension I10 Hyperlipidemia E78.5 Pre-diabetes R73.03 Elevated PSA R97.20 Assessment & Plan Assessment & Plan (1) Essential hypertension: Code(s): I10 - Essential (primary) hypertension Category: Medical Plan: Blood?pressure?is?controlled?on?lisinopril?and?metoprolol.??Goal?is?less?than? Continue?current?Medication (2) Hyperlipidemia: Code(s): E78.5 - Hyperlipidemia, unspecified Category: Medical Plan: Keeping?an?eye?on?patient's?lipids. Will?recheck?prior?to?next?visit (3) Pre-diabetes: Code(s): R73.03 - Prediabetes Category: Medical Plan: A1c?was?5.8%?in?March. A1c?now 5.7%. Continue?to?work?at?a?diet?low?in?sugars?and?starches Continue?exercise We?can?check?periodically (4) Elevated PSA: Code(s): R97.20 - Elevated prostate specific antigen [PSA] Category: Medical Plan: Followed?by??Melody and?has?upcoming?appointment?in?about?2 weeks Orders: Orders Lipid Panel Today E78.5 - Hyperlipidemia, unspecified, Z00.00 - Encounter for general adult medical examination without abnormal findings Comprehensive [place]. Panel Fast Today E78.5 - Hyperlipidemia, unspecified, Z00.00 - Encounter for general adult medical examination without abnormal findings
[2024-07-30 16:30] VITALS: BP 132/68; PULSE 84; RESP 16; TEMP 36.6; O2SAT 97; BMI 22.6
== END 2024-07-30 17:01 | disposition home or self-care (01) ==
PROVIDERS: PCP Family Medicine; Visit Provider Family Medicine
DX: I10 Essential (primary) hypertension (principal); E78.5 Hyperlipidemia, unspecified; R73.03 Prediabetes; R97.20 Elevated prostate specific antigen [PSA]

== ENCOUNTER → 2024-07-30 16:25 | Outpatient (BNVA) | payer OTHER, SELFPAY | PROVIDERS: PCP Family Medicine; Visit Provider Family Medicine ==

== ENCOUNTER → 2024-08-15 15:52 | Outpatient (BNVA) | payer OTHER, SELFPAY | PROVIDERS: PCP Family Medicine; Visit Provider Urology ==

== ENCOUNTER 2024-08-15 15:53 | Outpatient (AMB) | payer OTHER, SELFPAY ==
--- NOTE | 2024-08-15 15:58 | A.OFFVIS_ITS ---
Intake Visit Reasons: 5M MRI/PSA Intake Note: Patient presents today for follow up on: PSA and MRI results Imaging Completed: 07/27/24 PSA: 7.6 Meds: Dutasteride Allergies to Antibiotic- No Known Allergies Blood Thinner- None Title Specialist Required: No Accompanied by: Unknown Allergies No Known Allergies [No Known Allergies*] Allergy (Verified 08/15/24 16:06) HPI Comments Details: 08/15/24--Cole is a 64 year old male who is being followed with active surveillance for prostate adenocarcinoma. He is here with his status post MRI prostate on 07/27/2024 I have reviewed the results no focal lesion is noted in the peripheral zone prostate. The patient states he has been compliant with daily Avodart use. Follow-up PSA-07/06/24 is stable-7.28 ng/mL. Plan PSA in 6 months. 03/13/24--Cole is status post prostate biopsy on 02/23/2024, I have reviewed results, 1 positive biopsy, right base medial [place] 3+3=6. Plan active surveillance MRI and PSA in 4 months. Avodart for enlarged prostate. 12/25/23--Cole is a 63-year-old male patient of Dr. Blackburn who was accompanied by his Lety during todays telehealth visit.-- has a past medical history of pre diabetes, hypercholesteremia, and hypertension. He is being followed up on today via telehealth for his elevated PSA. Recent PSA and retroperitoneal ultrasound reviewed with the patient today. PSAs are as follows: 08/18-- 5.5 05/18--7.1 08/19-- 7.1 % free PSA 7% Bilateral kidneys with no hydronephrosis or lesions noted. Right kidney with upper peripelvic simple cyst measuring approximately 1 cm. Left kidney with multiple hyperechoic foci along the cortical medullary junction. The bladder is well distended and normal. Bilateral ureteral jets are demonstrated. Pre void bladder volume is approximately 210 mL. Postvoid bladder volume is approximately 10 mL. Prostate volume is approximately 48 mL. Discussed at length potential causes for elevated PSA. PCPT risk calculator results reviewed with the patient today. 13% chance for negative prostate biopsy, 54% chance low-grade prostate cancer, and 33% chance high-grade prostate cancer. He otherwise denies any urinary issues or concerns. He denies urinary urgency, urinary frequency, incontinence, nocturia, hematuria, dysuria, foul smelling urine, changes to urinary stream, flank pain, fever, and or chills. He is happy with his current voiding parameters. When asked he denies any known family history of prostate cancer. RENZO performed during last office visit noted no nodules or masses palpated however right-sided prostate was firm. Discussed at length risks and benefits of further treatment options to include prostate biopsy and or MRI of the prostate. He discusses having seen his daughter in [place] who is highly recommending him to undergo further assessment evaluation of elevated PSA. Discussed obtaining prostate biopsy under sedation if necessary. He otherwise offers no other issues or concerns at this time. [facility] Surgical History History of ear surgery History of surgery on lower extremity Social History Housing: Apartment Alcohol intake: never Patient Tobacco Use Status: Current everyday Tobacco user Tobacco use type: Cigarette Cigarette Packs Per Day: 0.5 Cigarettes Per Day: 10 e-Cigarette/Vaping Use: Never Used Second Hand Smoke Exposure: Yes service: No Current occupational status: employed Cognitive needs: No Hearing needs: No Vision needs: No Review of Systems Const All systems reviewed & are unremarkable except as noted in HPI and below Reports no additional complaints Eyes Reports no additional complaints ENT Reports no additional complaints Card Reports no additional complaints Resp Reports no additional complaints GI Reports no additional complaints Reports as per HPI Musc Reports no additional complaints Skin/Breast Reports system reviewed and no additional complaints, except as documented Neuro Reports no additional complaints Psych Reports no additional complaints Endo Reports no additional complaints Edmar/Lymph Reports no additional complaints Aller/Immun Reports no additional complaints Assessment & Plan Assessment & Plan (1) Adenocarcinoma of prostate: Code(s): C61 - Malignant neoplasm of prostate Category: Medical (2) Elevated PSA: Code(s): R97.20 - Elevated prostate specific antigen [PSA] Category: Medical (3) Enlarged prostate: Code(s): N40.0 - Benign prostatic hyperplasia without lower urinary tract symptoms Category: Medical Plan MRI prostate on 07/27/2024 I have reviewed the results no focal lesion is noted in the peripheral zone prostate. The patient states he has been compliant with daily Avodart use. Follow-up PSA-07/06/24 is stable-7.28 ng/mL. Plan PSA in 6 months. Orders: Orders PSA,Total (Free>4and<10) 5 Months C61 - Malignant neoplasm of prostate Medications: Refilled dutasteride (Avodart) 0.5 mg PO DAILY 90 caps 3RF Patient Instructions: The patient had an opportunity to ask questions regarding treatment plan. The patient expressed understanding and agreement with the above treatment plan. The patient is aware they should contact our office by phone for worsening of their current condition or the appearance of new symptoms. Compliance is encouraged with any medications and followup testing that is ordered. It is a privilege to be allowed the opportunity to participate in the urologic care of your patient. If you have any questions or concerns regarding treatment for the above conditions please do not hesitate to contact me. The office telephone contact is [phone]. This note is constructed in part using voice recognition software. While every effort has been made to ensure accuracy medical genetics director errors may have been included. Yours sincerely, Poornima Oliver MD Coding Level of Care Code Est Pt Level 4 (47912) Diagnoses Adenocarcinoma of prostate C61 Elevated PSA R97.20 Enlarged prostate N40.0
== END 2024-08-15 16:21 | disposition home or self-care (01) ==
PROVIDERS: PCP Family Medicine; Visit Provider Urology
DX: C61 Malignant neoplasm of prostate (principal); R97.20 Elevated prostate specific antigen [PSA]; N40.0 Benign prostatic hyperplasia without lower urinary tract symptoms
CPT/HCPCS: 99214

== ENCOUNTER 2024-10-24 11:42 | Outpatient (REF) | payer OTHER, SELFPAY ==
[2024-10-24 12:35] LABS: Alanine Aminotransferase 25 U/L (0-40); Albumin Level 4.4 g/dL (3.5-5.0); Alkaline Phosphatase 85 U/L (39-117); Anion Gap 11 (12-20); Aspartate Amino Transferase 23 U/L (5-37); Bilirubin Total 0.5 mg/dL (0.0-1.0); Blood Urea Nitrogen 19 mg/dL (9-16); Calcium 9.7 mg/dL (8.4-10.2); Carbon Dioxide 34 mmol/L (22-29); Chloride 103 mmol/L (96-108); Cholesterol 214 mg/dL (<200); Estimated Glomerular Filt Rate > 60; Glucose Fasting 102 mg/dL (60-99); HDL Cholesterol 41 mg/dL (>40); LDL Cholesterol Calculated 144 mg/dL (<100); Potassium 4.5 mmol/L (3.3-5.1); Sodium 143 mmol/L (135-145); Total Protein 7.4 g/dL (6.5-8.0); Triglycerides 147 mg/dL (<150)
== END 2024-10-24 11:43 | disposition home or self-care (01) ==
LOC: HO.LAB 11:42
PROVIDERS: PCP Family Medicine; Visit Provider Family Medicine
DX: Z00.00 Encounter for general adult medical examination without abnormal findings (principal); E78.5 Hyperlipidemia, unspecified
CPT/HCPCS: 36415; 80053; 80061

== ENCOUNTER 2024-10-29 16:09 | Outpatient (AMB) | payer OTHER, SELFPAY ==
--- NOTE | 2024-10-29 16:12 | A.OFFPC_ITS ---
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 Labs drawn 10/24/24. Reviewed labs with pt. Triglycerides 147. TC 214. LDL 144. HDL 41. Prior A1c 5.7%. Continues to try and work on a better diet. Pt notes he has recently lost his job. Blood pressure today 102/60, 74p. He is on lisinopril 10mg, metoprolol 100mg daily. Follows up with Urology for prostate adenocarcinoma. [facility] Surgical History History of ear surgery History of surgery on lower extremity Social History Housing: Apartment Alcohol intake: never Patient Tobacco Use Status: Current everyday Tobacco user Tobacco use type: Cigarette Cigarette Packs Per Day: 0.5 Cigarettes Per Day: 10 e-Cigarette/Vaping Use: Never Used Second Hand Smoke Exposure: Yes service: No Current occupational status: employed Cognitive needs: No Hearing needs: No Vision needs: No Questionnaire PHQ-9 Over the last 2 weeks, how often have you been bothered by any of the following problems? 1. Little interest or pleasure in doing things: not at all 2. Feeling down, depressed, or hopeless: not at all 3. Trouble falling or staying asleep, or sleeping too much: not at all 4. Feeling tired or having little energy: not at all 5. Poor appetite or overeating: not at all 6. Feeling bad about yourself - or that you are a failure or have let yourself or your family down: not at all 7. Trouble concentrating on things, such as reading the newspaper or watching television: not at all 8. Moving or speaking so slowly that other people could have noticed. Or the o pposite - being so fidgety or restless that you have been moving around a lot more than usual: not at all 9. Thoughts that you would be better off or of hurting yourself in some way: not at all Total score: 0 Depression Screening Interpretation: Negative Depression Screening Done: Yes 17539 - PHQ-9 Billing: Yes Source: Developed by Drs. Matti Richard, lCarita Somers, Mohsen Longoria and colleagues, with an educational juli from [employer]. Thrive Questionnaire Date Thrive assessed: 10/29/24 I am a: Patient What is your living situation today?: I have a steady place to live Within the past 12 months, did the food you bought not last and you didn't have the money to get more?: Never true Within the past 12 months, did you worry whether your food would run out before you got money to buy more?: Never true Do you have trouble paying for medicines?: No Do you have trouble getting transportation to medical appointments?: No Do you have trouble paying your heating and electricity bill?: No Do you have trouble taking care of your child, family member or friend?: No Do you have trouble with day-to-day activities such as bathing, preparing meals, shopping, managing finances, etc.?: No Are you currently unemployed and looking for a job?: No Are you interested in more education?: No Please select the resources that you would like help with: None Currently or been in a relationship where the following occur: No concerns reported THRIVE Score: 0 AUDIT C Alcohol Use Questionnaire (AUDIT-C) 3. How often do you have six or more drinks on one occasion?: Never Total Score: 0 MAUREEN-7 AMB Questionnaire MAUREEN-7 Date MAUREEN - 7 assessed: 10/29/24 Feeling nervous, anxious, or on edge: 0 = Not at all Not being able to stop or control worryin = Not at all Worrying too much about different things: 0 = Not at all Trouble relaxin = Not at all Being so restless that it is hard to sit still: 0 = Not at all Becoming easily annoyed or irritable: 0 = Not at all Feeling afraid as if something awful might happen: 0 = Not at all Total MAUREEN-7 score (0-4 normal; 5-9 mild; 10-14 moderate; 15-21 severe): 0 Source: Developed by Drs. Matti Richard, Clarita Somers, Mohsen Longoria and colleagues, with an educational juli from [employer]. MAUREEN-7 Assessment Billing MAUREEN-7 Assessment Tool: MAUREEN-7 Assessment 11250 Review of Systems Const Denies chills, Denies fatigue, Denies fever(s), Denies headache(s) and Denies weakness ENT Denies dizziness and Denies headache(s) Card Denies dyspnea Resp Denies cough, Denies dyspnea, Denies wheezing and Denies other (shortness of breath) Musc Denies numbness and Denies tingling Neuro Denies dizziness, Denies headache(s), Denies numbness, Denies tingling and Denies weakness Psych Denies anxiety and Denies depression Endo Denies fatigue Aller/Immun Denies wheezing Physical exam (Primary Care) Vital Signs: Last Vital Signs Temp 97.4 F 10/29/24 16:20 Pulse 74 10/29/24 16:20 Resp 14 10/29/24 16:20 BP 102/60 10/29/24 16:20 Pulse Ox 96 10/29/24 16:20 Oxygen Delivery Method Room Air 10/29/24 16:20 BMI result Body Mass Index 22.7 Tobacco/Smoking Status: Tobacco use Status Tobacco use date assessed 10/29/24 10/29/24 16:19 Patient Tobacco Use Status Current everyday Tobacco 10/29/24 16:14 Tobacco use type Cigarette 10/29/24 16:14 e-Cigarette/Vaping Use Never Used 10/29/24 16:14 PHQ-9: PHQ-9 Score PHQ-9: Total score 0 10/29/24 16:42 Depression Screening Interpretation: Negative Thrive Assessment: Date of Thrive Assessment Date Thrive assessed 10/29/24 10/29/24 16:19 Currently or been in a relationship where the following occur: No concerns reported Const General: well developed; No acute distress Nutritional Appearance: well nourished Orientation/consciousness: patient oriented x3 HENMT Head: Yes normocephalic and Yes atraumatic Eyes General: appearance normal, both eyes and all related structures Pupils: Equal, round and reactive pupils present EOM: EOMs intact bilaterally Resp Effort & Inspection: normal respiratory effort Neuro General: patient oriented x3 and gait normal Cranial nerves: Yes Equal, round and reactive pupils present Psych Affect: normal affect Coding Level of Care Code Est Pt Level 4 (45903) Diagnoses Essential hypertension I10 Hyperlipidemia E78.5 Additional Codes MAUREEN-7 Assessment Billing - MAUREEN-7 Assessment Tool: MAUREEN-7 Assessment 46674 ([id number]) PHQ-9 - 60830 - PHQ-9 Billing: Yes ([id number]) Assessment & Plan Assessment & Plan (1) Essential hypertension: Code(s): I10 - Essential (primary) hypertension Category: Medical Plan: Blood?pressure?is?controlled.??Goal?is?less?than?140/90 Continue?current?medications Hydrate?well (2) Hyperlipidemia: Code(s): E78.5 - Hyperlipidemia, unspecified Category: Medical Plan: LDL?cholesterol?has?risen Starting?atorvastatin?10?mg?daily Can?recheck?lipids?prior?to?next?visit?in?about?3?months Orders: Orders Lipid Panel Today E78.5 - Hyperlipidemia, unspecified, Z00.00 - Encounter for general adult medical examination without abnormal findings Hemoglobin A1c Today R73.01 - Impaired fasting glucose Comprehensive [place]. Panel Fast Today E78.5 - Hyperlipidemia, unspecified, Z00.00 - Encounter for general adult medical examination without abnormal findings Medications: New atorvastatin 10 mg PO BEDTIME 90 days 90 tabs 3RF Changed From lisinopril 10 mg PO DAILY 90 tabs 2RF To lisinopril 10 mg PO DAILY 90 days 90 tabs 3RF Refilled metoprolol succinate ER 100 mg PO DAILY 90 days 90 tabs 3RF
[2024-10-29 16:20] VITALS: BP 102/60; PULSE 74; RESP 14; TEMP 36.3; O2SAT 96; BMI 22.7
== END 2024-10-29 16:53 | disposition home or self-care (01) ==
LOC: HO.HMCFM 16:10
PROVIDERS: PCP Family Medicine; Visit Provider Family Medicine
DX: I10 Essential (primary) hypertension (principal); E78.5 Hyperlipidemia, unspecified

== ENCOUNTER → 2024-10-29 16:09 | Outpatient (BNVA) | payer OTHER, SELFPAY | PROVIDERS: PCP Family Medicine; Visit Provider Family Medicine | DX: I10 Essential (primary) hypertension (principal); E78.5 Hyperlipidemia, unspecified; Z79.899 Other long term (current) drug therapy | CPT/HCPCS: 96127 ==

== ENCOUNTER 2024-12-26 12:36 | Outpatient (REF) | payer OTHER, SELFPAY ==
[2024-12-26 13:37] LABS: Hemoglobin A1C 142.1589 umol/L; Total Hemoglobin (HGBA1C) 3891.7066 umol/L
[2024-12-26 14:08] LABS: Alanine Aminotransferase 25 U/L (0-40); Albumin Level 4.4 g/dL (3.5-5.0); Alkaline Phosphatase 70 U/L (39-117); Anion Gap 9 (12-20); Aspartate Amino Transferase 32 U/L (5-37); Blood Urea Nitrogen 15 mg/dL (9-16); Calcium 9.4 mg/dL (8.4-10.2); Carbon Dioxide 30 mmol/L (22-29); Chloride 104 mmol/L (96-108); Cholesterol 133 mg/dL (<200); Estimated Glomerular Filt Rate > 60; HDL Cholesterol 32 mg/dL (>40); Potassium 4.3 mmol/L (3.3-5.1); Sodium 139 mmol/L (135-145); Total Protein 6.8 g/dL (6.5-8.0); Triglycerides 139 mg/dL (<150)
[2024-12-26 14:23] LABS: PSA,Total (Free>4and<10) 7.02 ng/mL (0.00-4.00)
[2024-12-30 14:19] LABS: Free Prostate Spec Ag 0.4 ng/mL; Percent Free Prostate Spec Ag 7 % (calc) (>25)
== END 2024-12-26 12:37 | disposition home or self-care (01) ==
LOC: HO.LAB 12:36
PROVIDERS: PCP Family Medicine; Visit Provider Urology
DX: Z00.00 Encounter for general adult medical examination without abnormal findings (principal); R73.01 Impaired fasting glucose; E78.5 Hyperlipidemia, unspecified; C61 Malignant neoplasm of prostate; Z12.5 Encounter for screening for malignant neoplasm of prostate
CPT/HCPCS: 36415; 80053; 80061; 83036; 84153; 84154

== ENCOUNTER 2025-01-09 15:19 | Outpatient (AMB) | payer OTHER, SELFPAY ==
--- NOTE | 2025-01-08 22:30 | MHC.OFFVIS ---
Intake Visit Reasons: 6m/PSA Intake Note: Patient presents today for 6m follow up/PSA 12/26 Total PSA: 7.02 Free PSA: 0.4 Urology Meds: Dutasteride Allergies to Antibiotic:No Known Allergies Blood Thinner:None Vp Account Director Required: No Accompanied by: Unknown Allergies No Known Allergies (No Known Allergies*) Allergy (Verified 01/09/25 15:40) Medication List - Last Reconciled 01/09/25 by Poornima Oliver MD atorvastatin 10 mg PO BEDTIME 90 days finasteride (Proscar) 5 mg PO DAILY lisinopril 10 mg PO DAILY 90 days metoprolol succinate ER 100 mg PO DAILY 90 days HPI Comments Details: 01/09/25--6 month fu. Cole is a 64-year-old male followed with active surveillance for localized prostate cancer [place] 3 + 3 in 1 core he had prostate biopsies done in 2023 he has had follow-up MRI of the prostate July 2024 which was negative for any focal lesions. Repeat PSA- 12/26/24--7.02 History of Present Illness - The patient is a 64-year-old male presenting for follow-up of localized prostate cancer under active surveillance. - Diagnosed with localized prostate cancer, Lancaster score 3+3, in one core during prostate biopsies conducted in January 2024. - The cancer was identified in 5% of the tissue, indicating a low volume of disease. - Follow-up MRI of the prostate in July 2024 was negative for any focal lesions in the peripheral zone.. - The patient was on dutasteride, which is being replaced with finasteride. - PSA levels have remained stable, with the most recent reading at 7.02, slightly decreased from 7.28 previously. Plan--- Continue active surveillance for prostate cancer with regular monitoring. Transition from dutasteride to finasteride. Schedule follow-up MRI prostate and PSA in six months 08/15/24--Cole is a 64 year old male who is being followed with active surveillance for prostate adenocarcinoma. He is here with his status post MRI prostate on 07/27/2024 I have reviewed the results no focal lesion is noted in the peripheral zone prostate. The patient states he has been compliant with daily Avodart use. Follow-up PSA-07/06/24 is stable-7.28 ng/mL. Plan PSA in 6 months. 03/13/24--Cole is status post prostate biopsy on 02/23/2024, I have reviewed results, 1 positive biopsy, right base medial [place] 3+3=6. Plan active surveillance MRI and PSA in 4 months. Avodart for enlarged prostate. 12/25/23--Cole is a 63-year-old male patient of Dr. Blackburn who was accompanied by his Lety during todays telehealth visit.-- has a past medical history of pre diabetes, hypercholesteremia, and hypertension. He is being followed up on today via telehealth for his elevated PSA. Recent PSA and retroperitoneal ultrasound reviewed with the patient today. PSAs are as follows: 08/18-- 5.5 05/18--7.1 08/19-- 7.1 % free PSA 7% Bilateral kidneys with no hydronephrosis or lesions noted. Right kidney with upper peripelvic simple cyst measuring approximately 1 cm. Left kidney with multiple hyperechoic foci along the cortical medullary junction. The bladder is well distended and normal. Bilateral ureteral jets are demonstrated. Pre void bladder volume is approximately 210 mL. Postvoid bladder volume is approximately 10 mL. Prostate volume is approximately 48 mL. Discussed at length potential causes for elevated PSA. PCPT risk calculator results reviewed with the patient today. 13% chance for negative prostate biopsy, 54% chance low-grade prostate cancer, and 33% chance high-grade prostate cancer. He otherwise denies any urinary issues or concerns. He denies urinary urgency, urinary frequency, incontinence, nocturia, hematuria, dysuria, foul smelling urine, changes to urinary stream, flank pain, fever, and or chills. He is happy with his current voiding parameters. When asked he denies any known family history of prostate cancer. RENZO performed during last office visit noted no nodules or masses palpated however right-sided prostate was firm. Discussed at length risks and benefits of further treatment options to include prostate biopsy and or MRI of the prostate. He discusses having seen his daughter in [place] who is highly recommending him to undergo further assessment evaluation of elevated PSA. Discussed obtaining prostate biopsy under sedation if necessary. He otherwise offers no other issues or concerns at this time. [facility] Surgical History History of ear surgery History of surgery on lower extremity Social History Housing: Apartment Alcohol intake: never Patient Tobacco Use Status: Current everyday Tobacco user Tobacco use type: Cigarette Cigarette Packs Per Day: 0.5 Cigarettes Per Day: 10 e-Cigarette/Vaping Use: Never Used Second Hand Smoke Exposure: Yes service: No Current occupational status: employed Cognitive needs: No Hearing needs: No Vision needs: No Review of Systems Const All systems reviewed & are unremarkable except as noted in HPI and below Reports no additional complaints Eyes Reports no additional complaints ENT Reports no additional complaints Card Reports no additional complaints Resp Reports no additional complaints GI Reports no additional complaints Reports as per HPI Musc Reports no additional complaints Skin/Breast Reports system reviewed and no additional complaints, except as documented Neuro Reports no additional complaints Psych Reports no additional complaints Endo Reports no additional complaints Edmar/Lymph Reports no additional complaints Aller/Immun Reports no additional complaints Results Reviewed Results Reviewed: Collected: 02/23/24 Location: [facility] Received: 02/23/24 Diagnosis A: Left base lateral: Benign prostatic tissue; negative for malignancy. B: Left base medial: Benign prostatic tissue; negative for malignancy. C: Left mid lateral: Benign prostatic tissue; negative for malignancy. D: Left mid medial: Benign prostatic tissue; negative for malignancy. E: Left apex lateral: Benign prostatic tissue; negative for malignancy. F: Left apex medial: Benign prostatic tissue; negative for malignancy. G: Right base lateral: Benign prostatic tissue; negative for malignancy. H: Right base medial: Prostatic adenocarcinoma, Thaddeus score 3+3=6 (grade group 1) involving 5% of the tissue. I: Right mid lateral: Benign prostatic tissue; negative for malignancy. J: Right mid medial: Benign prostatic tissue; negative for malignancy. K: Right apex lateral: Benign prostatic tissue; negative for malignancy. L: Right apex medial: Benign prostatic tissue; negative for malignancy. Data synopsis - Prostate needle biopsy Histologic type: Adenocarcinoma, acinar type Histologic grade: Thaddeus score: 3+3=6 % of pattern 4: 0% % of pattern 5: 0% Grade group: 1 Tumor quantitation: Number cores positive: 1 Total number of cores: 12 % of tissue involved: Less than 1% of all tissue examined Periprostatic fat inv.: Not identified Seminal vesicle inv.: Not identified Patient: Cole Marks Age/Sex: 64/M [facility]#: [id number] MR#: [id number] Page 1 of 3 Surgical Pathology [id number] Perineural inv.: Not identified LVI: Not identified Clinical History Elevated PSA Microscopic Description A-L. Microscopic sections reviewed. PIN4 multiplex immunostains support the diagnoses in D and H. Material Received A: Left base lateral B: Left base medial C: Left mid lateral D: Left mid medial E: Left apex lateral F: Left apex medial Date of Service: 07/26/23 EXAMINATION: US RETROPERITONEAL LIMITED (RENAL ONLY) FINDINGS: RIGHT KIDNEY: 9.6 x 4.0 x 4.2 cm (SAG x AP x TRV). The kidney is normal in size, contour, and echogenicity. Renal cortical thickness is normal. No renal calculi or hydronephrosis. Right upper parapelvic simple cyst is seen measuring 0.7 x 1.0 x 0.8 cm in size LEFT KIDNEY: 10.3 x 5.1 x 4.9 cm (SAG x AP x TRV). The kidney is normal in size, contour, and echogenicity. Renal cortical thickness is normal. No calculi or focal parenchymal lesions. No hydronephrosis. Multiple hyperechoic foci are seen mostly along the corticomedullary junction. -- IMPRESSION: 1. Simple right renal cyst is found, for which no follow up imaging is recommended. 2. Multiple hyperechoic foci are seen mostly along the corticomedullary junction of the left kidney. The appearance is nonspecific and could reflect medullary nephrocalcinosis. No nephrocalcinosis however, is seen on CT scan of abdomen and pelvis on 06/19/2019. Date of Service: 08/15/23 EXAMINATION: US PELVIS LIMITED (BLADDER) FINDINGS: BLADDER: Well distended and normal. Bilateral ureteral jets are demonstrated. Prevoid bladder volume is 209 mL. Postvoid bladder volume is 11 mL. OTHER: Prostate dimensions are 6.3 x 3.3 x 4.5 cm, volume 47.9 mL. US/US bladder IMPRESSION: 1. Unremarkable ultrasound appearance of the urinary bladder. 2. There is prostatomegaly. Assessment & Plan Assessment & Plan (1) Adenocarcinoma of prostate: Code(s): C61 - Malignant neoplasm of prostate Category: Medical (2) Elevated PSA: Code(s): R97.20 - Elevated prostate specific antigen [PSA] Category: Medical (3) Enlarged prostate: Code(s): N40.0 - Benign prostatic hyperplasia without lower urinary tract symptoms Category: Medical Plan Continue active surveillance for prostate cancer with regular monitoring. Transition from dutasteride to finasteride. Schedule follow-up MRI prostate and PSA in six months Orders: Orders PSA,Total (Free>4and<10) 6 Months C61 - Malignant neoplasm of prostate, R97.20 - Elevated prostate specific antigen [PSA] MR Prostate wo/w con 6 Months C61 - Malignant neoplasm of prostate, R97.20 - Elevated prostate specific antigen [PSA] AMB Urinalysis Automated Today Z13.9 - Encounter for screening, unspecified Medications: New finasteride (Proscar) 5 mg PO DAILY 90 tabs 3RF Discontinued dutasteride (Avodart) Discontinued Reason: Doctor's Order 0.5 mg PO DAILY 90 caps 3RF Patient Instructions: The patient had an opportunity to ask questions regarding treatment plan. The patient expressed understanding and agreement with the above treatment plan. The patient is aware they should contact our office by phone for worsening of their current condition or the appearance of new symptoms. Compliance is encouraged with any medications and followup testing that is ordered. It is a privilege to be allowed the opportunity to participate in the urologic care of your patient. If you have any questions or concerns regarding treatment for the above conditions please do not hesitate to contact me. The office telephone contact is [phone]. This note is constructed in part using voice recognition software. While every effort has been made to ensure accuracy medical associate errors may have been included. Yours sincerely, Poornima Oliver MD Scribe Plan - Not visible on output: Patient was informed and verbally consented to the use of an ambient scribe for clinic note documentation during this visit. Coding Level of Care Code Est Pt Level 4 (93511) Complex EM visit Add On G2211 Diagnoses Adenocarcinoma of prostate C61 Elevated PSA R97.20 Enlarged prostate N40.0
== END 2025-01-09 16:20 | disposition home or self-care (01) ==
LOC: HO.HUSH 15:20
PROVIDERS: PCP Family Medicine; Visit Provider Urology
DX: C61 Malignant neoplasm of prostate (principal); R97.20 Elevated prostate specific antigen [PSA]; N40.0 Benign prostatic hyperplasia without lower urinary tract symptoms; Z13.9 Encounter for screening, unspecified
CPT/HCPCS: 99214

== ENCOUNTER → 2025-01-09 15:19 | Outpatient (BNVA) | payer OTHER, SELFPAY | PROVIDERS: PCP Family Medicine; Visit Provider Urology | DX: R97.20 Elevated prostate specific antigen [PSA] (principal); C61 Malignant neoplasm of prostate; N40.0 Benign prostatic hyperplasia without lower urinary tract symptoms | CPT/HCPCS: 81003 ==

== ENCOUNTER 2025-01-30 15:25 | Outpatient (AMB) | payer MEDICARE, SELFPAY ==
--- NOTE | 2025-01-30 15:34 | MHC.PC.OV ---
Vital Signs 01/30/25 15:40 Height 5 ft 9 in Weight 154 lb 2 oz BMI 22.8 BP 116/64 Blood Pressure Location Rt brachial Position Sitting Respiration 14 Pulse 86 Pulse Source Pulse Oximeter Temp 98.6 F Temp Source Temporal Artery Scan Pulse Oximetry (%) 93 Oxygen Delivery Method Room Air Intake Visit Reasons: f/u pre-diabetes, HLD Intake Note: Cole presents in the office today to follow up on his pre-diabetes and cholesterol. Allergies No Known Allergies (No Known Allergies*) Allergy (Verified 01/30/25 15:36) Medication List - Last Reconciled 01/30/25 by Daquan Blackburn MD atorvastatin 5 mg (1/2 x 10 mg) PO BEDTIME 90 days dutasteride 0.5 mg PO DAILY finasteride (Proscar) 5 mg PO DAILY lisinopril 10 mg PO DAILY 90 days metoprolol succinate ER 100 mg PO DAILY 90 days Tobacco use date assessed: 01/30/25 Dental Screening Dental Screen Date: 01/30/25 Did you have a dental visit in the last 12 months?: No Did you have a dental problem in the last 6 months where you did not have access to dental care?: No Was dental information given to patient?: Patient declined HPI f/u pre-diabetes, HLD HPI Details 65 y/o male presents to f/u pre-diabetes, HLD. Last A1c drawn 12/26/24 5.5%. Triglycerides 139. TC 133. LDL improved from 144 to 74. He is on artovastatin 10mg daily. HDL low at 32. Total PSA 7.02. BP today 116/64, 86p. He is on lisinopril 10mg, metoprolol 100mg daily. [facility] Surgical History History of ear surgery History of surgery on lower extremity Social History (Updated 01/30/25 @ 15:39 by Chaya Saba MA) Housing: Apartment Alcohol intake: never Patient Tobacco Use Status: Current everyday Tobacco user Tobacco use type: Cigarette Cigarette Packs Per Day: 0.5 Cigarettes Per Day: 10 e-Cigarette/Vaping Use: Never Used Second Hand Smoke Exposure: Yes service: No Current occupational status: employed Cognitive needs: No Hearing needs: No Vision needs: No Questionnaire Thrive Questionnaire Date Thrive assessed: 07/30/24 I am a: Patient What is your living situation today?: I have a steady place to live Within the past 12 months, did the food you bought not last and you didn't have the money to get more?: Never true Within the past 12 months, did you worry whether your food would run out before you got money to buy more?: Never true Do you have trouble paying for medicines?: No Do you have trouble getting transportation to medical appointments?: No Do you have trouble paying your heating and electricity bill?: No Do you have trouble taking care of your child, family member or friend?: No Do you have trouble with day-to-day activities such as bathing, preparing meals, shopping, managing finances, etc.?: No Are you currently unemployed and looking for a job?: No Are you interested in more education?: No Please select the resources that you would like help with: None Currently or been in a relationship where the following occur: No concerns reported THRIVE Score: 0 MAUREEN-7 AMB Questionnaire MAUREEN-7 Date MAUREEN - 7 assessed: 10/29/24 Source: Developed by Drs. Matti Richard, Clarita Somers, Mohsen Longoria and colleagues, with an educational juli from [employer]. Review of Systems Const Denies chills, Denies fatigue, Denies fever(s), Denies headache(s) and Denies weakness ENT Denies dizziness and Denies headache(s) Card Denies chest pain, Denies lightheadedness, Denies dyspnea and Denies other (Palpitations) Resp Denies cough, Denies dyspnea, Denies wheezing and Denies other ( shortness of breath) Musc Denies numbness and Denies tingling Neuro Denies dizziness, Denies headache(s), Denies numbness, Denies tingling, Denies paresthesias and Denies weakness Psych Denies anxiety and Denies depression Endo Denies fatigue Aller/Immun Denies wheezing Physical exam (Primary Care) Vital Signs: Last Vital Signs Temp 98.6 F 01/30/25 15:40 Pulse 86 01/30/25 15:40 Resp 14 01/30/25 15:40 BP 116/64 01/30/25 15:40 Pulse Ox 93 01/30/25 15:40 Oxygen Delivery Method Room Air 01/30/25 15:40 BMI result Body Mass Index 22.8 Tobacco/Smoking Status: Tobacco use Status Tobacco use date assessed 01/30/25 01/30/25 15:39 Patient Tobacco Use Status Current everyday Tobacco 01/30/25 15:39 Tobacco use type Cigarette 01/30/25 15:39 e-Cigarette/Vaping Use Never Used 01/30/25 15:39 Thrive Assessment: Date of Thrive Assessment Date Thrive assessed 07/30/24 01/30/25 15:39 Currently or been in a relationship where the following occur: No concerns reported Const General: no acute distress and well developed Nutritional Appearance: well nourished Orientation/consciousness: patient oriented x3 HENMT Head: Yes normocephalic and Yes atraumatic Eyes General: appearance normal, both eyes and all related structures Pupils: Equal, round and reactive pupils present EOM: EOMs intact bilaterally Resp Effort & Inspection: normal respiratory effort Auscultation: clear to auscultation bilaterally Cardio Rate: regular rate Rhythm: regular rhythm Heart sounds: S1 normal heart sound present, S2 normal heart sound present, no gallops, no murmurs and no rubs Neuro General: patient oriented x3 and gait normal Cranial nerves: Yes Equal, round and reactive pupils present Psych Affect: normal affect Coding Level of Care Code Est Pt Level 4 (30152) Diagnoses Essential hypertension I10 Hyperlipidemia E78.5 Pre-diabetes R73.03 Elevated PSA R97.20 Assessment & Plan Assessment & Plan (1) Essential hypertension: Code(s): I10 - Essential (primary) hypertension Category: Medical Plan: Blood pressure is well controlled. Goal is less than 140/90 Continue current medications (2) Hyperlipidemia: Code(s): E78.5 - Hyperlipidemia, unspecified Category: Medical Plan: LDL cholesterol much improved and now at goal of less than 100 However HDL which was within normal range is now too low. Will decreased atorvastatin from 20 mg daily to 10 mg daily Continue diet low in saturated fats and cholesterol, control weight get of exercise. (3) Pre-diabetes: Code(s): R73.03 - Prediabetes Category: Medical Plan: A1c now 5.4% which is in normal range. Continue diet low in sugars and starches. Encouraged weight control and exercise. (4) Elevated PSA: Code(s): R97.20 - Elevated prostate specific antigen [PSA] Category: Medical Plan: Adenocarcinoma of prostate and fallen by Urology. They have changed dutasteride to finasteride and he has a six-month follow-up MRI ordered. Follow-up with urology as recommended Orders: Orders Comprehensive [place]. Panel Fast Today E78.5 - Hyperlipidemia, unspecified, Z00.00 - Encounter for general adult medical examination without abnormal findings Lipid Panel Today E78.5 - Hyperlipidemia, unspecified, Z00.00 - Encounter for general adult medical examination without abnormal findings Medications: Changed From atorvastatin 10 mg PO BEDTIME 90 days 90 tabs 3RF E78.5 - Hyperlipidemia, unspecified To atorvastatin 5 mg (1/2 x 10 mg) PO BEDTIME 45 tabs 3RF 90 days E78.5 - Hyperlipidemia, unspecified
[2025-01-30 15:40] VITALS: BP 116/64; PULSE 86; RESP 14; TEMP 37; O2SAT 93; BMI 22.8
== END 2025-01-30 16:30 | disposition home or self-care (01) ==
LOC: HO.HMCFM 15:26
PROVIDERS: PCP Family Medicine; Visit Provider Family Medicine
DX: I10 Essential (primary) hypertension (principal); E78.5 Hyperlipidemia, unspecified; R73.03 Prediabetes; R97.20 Elevated prostate specific antigen [PSA]

== ENCOUNTER → 2025-01-30 15:25 | Outpatient (BNVA) | payer MEDICARE, SELFPAY | PROVIDERS: PCP Family Medicine; Visit Provider Family Medicine | DX: E78.5 Hyperlipidemia, unspecified (principal); R73.03 Prediabetes; R97.20 Elevated prostate specific antigen [PSA]; I10 Essential (primary) hypertension | CPT/HCPCS: 99212 ==

== ENCOUNTER 2025-05-30 09:54 | Outpatient (REF) | payer MEDICARE, SELFPAY ==
[2025-05-30 11:20] LABS: Alanine Aminotransferase 25 U/L (0-40); Albumin Level 4.6 g/dL (3.5-5.0); Alkaline Phosphatase 77 U/L (39-117); Anion Gap 10 (12-20); Aspartate Amino Transferase 25 U/L (5-37); Blood Urea Nitrogen 19 mg/dL (9-16); Calcium 9.4 mg/dL (8.4-10.2); Carbon Dioxide 31 mmol/L (22-29); Chloride 106 mmol/L (96-108); Cholesterol 156 mg/dL (<200); Estimated Glomerular Filt Rate > 60; HDL Cholesterol 36 mg/dL (>40); Potassium 4.9 mmol/L (3.3-5.1); Sodium 142 mmol/L (135-145); Total Protein 7.1 g/dL (6.5-8.0); Triglycerides 132 mg/dL (<150)
== END 2025-05-30 09:55 | disposition home or self-care (01) ==
LOC: HO.LAB 09:54
PROVIDERS: PCP Family Medicine; Visit Provider Family Medicine
DX: Z00.00 Encounter for general adult medical examination without abnormal findings (principal); E78.5 Hyperlipidemia, unspecified
CPT/HCPCS: 36415; 80053; 80061

== ENCOUNTER 2025-06-05 13:10 | Outpatient (AMB) | payer MEDICARE, SELFPAY ==
--- NOTE | 2025-06-05 13:13 | A.OFFPC_ITS ---
Vital Signs 06/05/25 13:28 Height 5 ft 9 in Weight 160 lb 2 oz BMI 23.6 BP 118/64 Blood Pressure Location Lt brachial Position Sitting Respiration 18 Pulse 79 Pulse Source Pulse Oximeter Temp 97.7 F Temp Source Oral Pulse Oximetry (%) 96 Oxygen Delivery Method Room Air Intake Visit Reasons: follow up blood work 4 mnths Intake Note: follow up blood work [employer] Manager Required: No Accompanied by: Spouse Allergies No Known Allergies (No Known Allergies*) Allergy (Verified 06/05/25 13:27) Medication List - Last Reconciled 06/05/25 by Daquan Blackburn MD atorvastatin 5 mg (1/2 x 10 mg) PO BEDTIME 90 days finasteride (Proscar) 5 mg PO DAILY lisinopril 10 mg PO DAILY 90 days metoprolol succinate ER 100 mg PO DAILY 90 days Tobacco use date assessed: 01/30/25 Fall risk assessment: No Falls in past year Last assessed Fall Risk: 06/05/25 Dental Screening Dental Screen Date: 01/30/25 HPI follow up blood work 4 mnths HPI Details 65 y/o male presents to f/u labs, HLD. Labs drawn 05/30/25. Reviewed labs with pt. Fasting glucose 114. Triglycerides 132. TC 156. LDL 94. HDL low at 36. He is on artovastatin 5mg daily. BP today 118/64, 79p. He is on lisinopril 10mg, metoprolol 100mg daily. HPI Comments History of Present Illness Details Documentation assistance for Daquan Blackburn MD, was provided by Jaylan James, Clinical Research Manager on 06/05/2025 at 2:03 PM EST. I, Dr. Blackburn, have read, observed, and verified documentation. [facility] Surgical History History of ear surgery History of surgery on lower extremity Social History (Updated 06/05/25 @ 13:28 by Feliz Burton CMA) Housing: Apartment Alcohol intake: never Patient Tobacco Use Status: Current everyday Tobacco user Tobacco use type: Cigarette Cigarette Packs Per Day: 0.5 Cigarettes Per Day: 10 e-Cigarette/Vaping Use: Never Used Second Hand Smoke Exposure: Yes Use of substances other than those prescribed or required for medical reasons: No service: No Current occupational status: employed Cognitive needs: No Hearing needs: No Vision needs: No Questionnaire PHQ-9 Over the last 2 weeks, how often have you been bothered by any of the following problems? 1. Little interest or pleasure in doing things: not at all 2. Feeling down, depressed, or hopeless: not at all 3. Trouble falling or staying asleep, or sleeping too much: not at all 4. Feeling tired or having little energy: not at all 5. Poor appetite or overeating: not at all 6. Feeling bad about yourself - or that you are a failure or have let yourself or your family down: not at all 7. Trouble concentrating on things, such as reading the newspaper or watching television: not at all 8. Moving or speaking so slowly that other people could have noticed. Or the opposite - being so fidgety or restless that you have been moving around a lot more than usual: not at all 9. Thoughts that you would be better off or of hurting yourself in some way: not at all Total score: 0 Depression Screening Interpretation: Negative Depression Screening Done: Yes 71755 - PHQ-9 Billing: Yes Source: Developed by Drs. Matti Richard, Clarita Somers, Mohsen Longoria and colleagues, with an educational juli from [employer]. Thrive Questionnaire Date Thrive assessed: 07/30/24 I am a: Patient What is your living situation today?: I have a steady place to live Within the past 12 months, did the food you bought not last and you didn't have the money to get more?: Never true Within the past 12 months, did you worry whether your food would run out before you got money to buy more?: Never true Do you have trouble paying for medicines?: No Do you have trouble getting transportation to medical appointments?: No Do you have trouble paying your heating and electricity bill?: No Do you have trouble taking care of your child, family member or friend?: No Do you have trouble with day-to-day activities such as bathing, preparing meals, shopping, managing finances, etc.?: No Are you currently unemployed and looking for a job?: No Are you interested in more education?: No Please select the resources that you would like help with: None Currently or been in a relationship where the following occur: No concerns reported THRIVE Score: 0 AUDIT C Alcohol Use Questionnaire (AUDIT-C) 3. How often do you have six or more drinks on one occasion?: Never Total Score: 0 MAUEREN-7 AMB Questionnaire MAUREEN-7 Date MAUREEN - 7 assessed: 10/29/24 Source: Developed by Drs. Matti Richard, Clarita Somers, Mohsen Longoria and colleagues, with an educational juli from [employer]. Review of Systems Const Denies chills, Denies fatigue, Denies fever(s), Denies headache(s) and Denies weakness ENT Denies dizziness and Denies headache(s) Card Denies dyspnea Resp Denies cough, Denies dyspnea, Denies wheezing and Denies other (shortness of breath) Musc Denies numbness and Denies tingling Neuro Denies dizziness, Denies headache(s), Denies numbness, Denies tingling and Denies weakness Psych Denies anxiety and Denies depression Endo Denies fatigue Aller/Immun Denies wheezing Physical exam (Primary Care) Vital Signs: Last Vital Signs Temp 97.7 F 06/05/25 13:28 Pulse 79 06/05/25 13:28 Resp 18 06/05/25 13:28 BP 118/64 06/05/25 13:28 Pulse Ox 96 06/05/25 13:28 Oxygen Delivery Method Room Air 06/05/25 13:28 BMI result Body Mass Index 23.6 Tobacco/Smoking Status: Tobacco use Status Tobacco use date assessed 01/30/25 06/05/25 13:14 Patient Tobacco Use Status Current everyday Tobacco 06/05/25 13:28 Tobacco use type Cigarette 06/05/25 13:28 e-Cigarette/Vaping Use Never Used 06/05/25 13:28 PHQ-9: PHQ-9 Score PHQ-9: Total score 0 06/05/25 13:14 Depression Screening Interpretation: Negative Thrive Assessment: Date of Thrive Assessment Date Thrive assessed 07/30/24 06/05/25 13:14 Currently or been in a relationship where the following occur: No concerns reported Const General: well developed; No acute distress Nutritional Appearance: well nourished Orientation/consciousness: patient oriented x3 HENMT Head: Yes normocephalic and Yes atraumatic Eyes General: appearance normal, both eyes and all related structures Pupils: Equal, round and reactive pupils present EOM: EOMs intact bilaterally Resp Effort & Inspection: normal respiratory effort Neuro General: patient oriented x3 and gait normal Cranial nerves: Yes Equal, round and reactive pupils present Psych Affect: normal affect Coding Level of Care Code Est Pt Level 4 (45775) Diagnoses Essential hypertension I10 Hyperlipidemia E78.5 Low HDL (under 40) E78.6 Pre-diabetes R73.03 Additional Codes PHQ-9 - 94207 - PHQ-9 Billing: Yes ([id number]) Assessment & Plan Assessment & Plan (1) Essential hypertension: Code(s): I10 - Essential (primary) hypertension Category: Medical Plan: Blood pressure is well controlled. Goal is less than 140/90 Continue lisinopril and metoprolol as prescribed (2) Hyperlipidemia: Code(s): E78.5 - Hyperlipidemia, unspecified Category: Medical Plan: HDL cholesterol was too low at last measurement Decreased atorvastatin from 10 mg to 5 mg LDL cholesterol remains less than 100 HDL increased slightly from 32-36. Still a little too low. Encouraged exercise Continue atorvastatin 5 mg daily (3) Low HDL (under 40): Code(s): E78.6 - Lipoprotein deficiency Category: Medical Plan: As above (4) Pre-diabetes: Code(s): R73.03 - Prediabetes Category: Medical Plan: Fasting blood sugar is little higher than at last measurement Encouraged diet lower in sugars and starches Will recheck A1c with next labs Orders: Orders Hemoglobin A1c Today R73.01 - Impaired fasting glucose, R73.03 - Prediabetes Comprehensive [place]. Panel Fast Today E78.5 - Hyperlipidemia, unspecified, Z00.00 - Encounter for general adult medical examination without abnormal findings
[2025-06-05 13:28] VITALS: BP 118/64; PULSE 79; RESP 18; TEMP 36.5; O2SAT 96; BMI 23.6
== END 2025-06-05 14:11 | disposition home or self-care (01) ==
LOC: HO.HMCFM 13:11
PROVIDERS: PCP Family Medicine; Visit Provider Family Medicine
DX: I10 Essential (primary) hypertension (principal); E78.5 Hyperlipidemia, unspecified; E78.6 Lipoprotein deficiency; R73.03 Prediabetes

== ENCOUNTER → 2025-06-05 13:10 | Outpatient (BNVA) | payer MEDICARE, SELFPAY | PROVIDERS: PCP Family Medicine; Visit Provider Family Medicine | DX: I10 Essential (primary) hypertension (principal); E78.5 Hyperlipidemia, unspecified; E78.6 Lipoprotein deficiency; R73.03 Prediabetes; Z13.31 Encounter for screening for depression | CPT/HCPCS: 96127; 99212 ==